=== PATIENT | male | born 1935 | race Caucasian/White ===

== ENCOUNTER 2024-03-04 01:29 | Inpatient (IN) | payer MEDICARE, BC, SELFPAY ==
[2024-03-03 20:48] VITALS: BP 102/67
[2024-03-03 20:49] VITALS: BMI 25.7
[2024-03-03 21:00] VITALS: BP 114/62
[2024-03-03 21:20] LABS: % Basophils 0.8 % (0-2); % Eosinophils 4.2 % (0-6); % Immature Granulocytes 0.2 % (0-0.5); % Lymphocytes 24.7 % (20.5-51.1); % Monocytes 17.5 % (1.7-9.3); % Neutrophils 52.6 % (42.2-75.2); Absolute Eosinophils 0.2 10^3/uL (0-0.7); Absolute Lymphocytes 1.2 10^3/uL (1.2-3.4); Absolute Monocytes 0.9 10^3/uL (0.1-0.6); Absolute Neutrophils 2.7 10^3/uL (1.4-6.5); Hematocrit 30.9 % (39.0-52.0); Hemoglobin 10.8 g/dL (13.0-18.0); Mean Corpuscular Hgb 32.3 pg (27.0-31.0); Mean Corpuscular Volume 92.5 fL (80.0-94.0); Nucleated Red Blood Cells % 0 % (-); Platelet Count 144 10^3/uL (130-400); Red Blood Cell Count 3.34 10^6/uL (4.70-6.10); Red Cell Dist. Width 14.1 % (11.5-14.5)
[2024-03-03 21:36] LABS: ALT (SGPT) 12 U/L (0-50); AST (SGOT) 21 U/L (17-59); Albumin 3.4 g/dl (3.5-5.0); Alkaline Phosphatase 49 U/L (38-126); Blood Urea Nitrogen 20 mg/dl (9-20); Calcium 8.7 mg/dl (8.4-10.2); Carbon Dioxide 20 mmol/L (22-30); Chloride 105 mmol/L (98-107); Estimated Creatinine Clearance 32 ml/min; Glucose 85 mg/dl (70-99); Potassium 3.8 mmol/L (3.5-5.1); Sodium 132 mmol/L (135-145); Total Bilirubin 1.9 mg/dl (0.2-1.3); eGFR 35.98
[2024-03-03] MEDS: NSS 500 IV (21:57)
[2024-03-03] MEDS: TYLENOL 1000 MG PO (21:57)
--- NOTE | 2024-03-03 22:05 | ED.GENMED ---
History of Present Illness
General
Chief Complaint: Failure to Thrive
Source: patient and spouse
Exam Limitations: none
Time Seen by Provider: 03/03/24 21:08
Travel History
Have you had any contact with someone who has COVID-19?: No
Do you have any symptoms of coronavirus? Fever > 100 degrees, chills, cough, shortness of breath, sore throat, loss of taste or smell, muscle aches, or headache?: No
History of Present Illness
History of Present Illness:
This is a 88 year old male that comes in with c/o not eating or drinking. [id number] and states that today he was unresponsive for a few hours. States that he was grunting. States that for the past 3 days he has not been eating as he
states that nothing taste good. States that he has some left lower abd pain and feels very weak. Patent is on Chemo and had his last treatment on Friday. Due for his next treatment on the . Denies any fever, chills, chest pain, SOB, abd pain,
nausea, vomiting, diarrhea, headache, dizziness, urinary burning.
Past History
Past History
ED Past Medical History: Asthma, Cancer (Bladder cancer, Brain and spine), Hypercholesterolemia and Other (DVT right leg)
ED Past Surgical History: Orthopedic (Right Achilles tear repair), Tonsilectomy, Urological and Other (Hernia, Cataracts)
Social History
Tobacco: Non-smoker
Alcohol: None
Personal:
Living: with family
Employment: Retired
Review of Systems
Review of Systems
All Other Systems: ROS reviewed and negative except as documented in HPI and ROS
Constitutional: Reports no symptoms; Denies fever or chills
EENT: Reports no symptoms
Respiratory: Reports no symptoms; Denies cough or trouble breathing
Cardiac: Reports no symptoms; Denies chest pain
ABD/GI: Reports no symptoms; Denies abdominal pain, nausea, vomiting or diarrhea
: Reports no symptoms; Denies dysuria, frequency or urgency
Musculoskeletal: Reports no symptoms
Skin: Reports no symptoms
Neurological: Reports weakness; Denies dizzy or headache
Psychiatric: Reports no symptoms
Phy Exam
General Physical Exam
General Presentation: no apparent distress
General age: appears stated age
General Skin: warm and dry
General Habitus: elderly
General Mental: alert
General Hydration: dry mucous membranes
ENT Exam
ENT Exam: TM's normal, pharynx normal and neck supple
Eye Exam
Eye Exam: EOMI
Cardiovascular Exam
Cardiovascular Exam: regular rate/rhythm and normal peripheral pulses
Pulmonary Exam
Pulmonary Exam: lungs clear, no respiratory distress, no rales, chest non tender, no crackles, no rhonchi, no wheezing and no cough
Gastrointestinal Exam
Gastrointestinal Exam: normal bowel sounds, soft, no organomegaly, no pulsatile mass, non distended and tender (Left lower abd tenderness with palpation)
Musculoskeletal Exam
Musculoskeletal Exam: full ROM and other (Swelling right lower leg >L Nonpitting. )
Skin Exam
Skin Exam: normal color, warm/dry, no rash and no petechia
Psychiatric Exam
Psychiatric Exam: normal mood/affect
Course
Orders/Labs/Results
Orders:
Orders
03/03/24 21:06
Electrocardiogram (*1) Urgent
Reason for Study: Other
Other Reason for Exam: Possible Sepsis
03/03/24 21:07
EKG- Treatment ONCE
03/03/24 21:11
Complete Blood Count/With Diff Urgent
Comprehensive Metabolic Panel Urgent
03/03/24 21:38
Rectal Temp- Treatment ONCE
03/03/24 21:39
CT Abd/pelvis W Iv Cont Urgent
Comment:
Reason For Exam: lEFT SIDED ABD PAIN
0.9% Sodium Chloride 500 ml [Nss] 500 ml IV BOLUS
03/03/24 21:56
Lactic Acid Urgent
Blood Culture Q30M
ROBIN Source: Blood/Venous
Specimen Description:
Blood Culture Q30M
ROBIN Source: Blood/Venous
Specimen Description:
Acetaminophen [Tylenol] 1,000 mg .ROUTE .STK-MED ONE
03/03/24 21:57
Acetaminophen [Tylenol] 1,000 mg PO NOW STA
03/03/24 23:07
CR Chest - 2 Views Urgent
Comment:
Reason For Exam: fever
03/03/24 23:08
Urinalysis Reflex To Culture Urgent
03/03/24 23:14
US Periph Venous LOWER Ext RT Urgent
Comment:
Reason For Exam: Right lower leg swelling
03/03/24 23:15
Blood Culture Q30M
ROBIN Source: Blood/Venous
Specimen Description:
03/03/24 23:19
COVID-19 Antigen Urgent
Source: Nasal Swab
Influenza A+B Rapid Molecular Urgent
ROBIN Source: Nasal Swab
Specimen Description:
03/03/24 23:21
Heparin Pf [Heparin Lock Flush] 500 unit .ROUTE .STK-MED ONE
03/03/24 23:45
Blood Culture Q30M
ROBIN Source: Blood/Venous
Specimen Description:
03/04/24 00:21
Admit/Transfer Patient As Directed
Co-Sign Provider:
Level of Care: Inpatient admission
Assign to:: Telemetry
Physician / Group: Lukas
Diagnosis: RLE DVT, Failure to Thrive
Reason for Telemetry: Arrhythmia
Date to Stop Telemetry: 03/07/24
Time to Stop Telemetry: 11:00
Reason for Hospitalization: RLE DVT, Failure to Thrive
Expected length of stay greater than two midnights?: Yes
ELOS- Estimated Length of Stay in days: 3
I certify the patient meets the requirements for IP care: Yes
03/04/24 00:26
Code Status As Directed
Resuscitation Status: Full Code
03/04/24 00:31
Heparin 6,900 units IV NOW STA
Pharmacy Request to Place See Dose Instructions PO NOW STA
Discontinue all Active Warfarin orders?: Yes
03/07/24 11:00
DC Protocol for Telemetry ONCE
Abnormal Lab Results
03/03/24
21:11
RBC 3.34 L 10^6/uL
(4.70-6.10)
Hgb 10.8 L g/dL
(13.0-18.0)
Hct 30.9 L %
(39.0-52.0)
MCH 32.3 H pg
(27.0-31.0)
Absolute Monos (auto) 0.9 H 10^3/uL
(0.1-0.6)
Monocytes % 17.5 H %
(1.7-9.3)
Sodium 132 L mmol/L
(135-145)
Carbon Dioxide 20 L mmol/L
(22-30)
Creatinine 1.8 H mg/dL
(0.7-1.3)
Total Bilirubin 1.9 H mg/dl
(0.2-1.3)
Total Protein 6.0 L g/dl
(6.3-8.2)
Albumin 3.4 L g/dl
(3.5-5.0)
03/03/24 21:11
03/03/24 21:11
H/H low Sodium slightly low, Carbon dioxide slightly low. Total indy elevation. Total protein slightly low. COVID and Influenza Negative, Lactic acid normal at 1.3
Vital Signs
Initial and Last Documented VS:
Initial Vital Signs
Temp Pulse Resp Pulse Ox
99 F 84 18 99
03/03/24 20:41 03/03/24 20:41 03/03/24 20:41 03/03/24 20:41
Last Documented Vital Signs
Temp Pulse Resp BP Pulse Ox
100.9 F H 85 22 114/62 100
03/03/24 23:36 03/03/24 22:00 03/03/24 22:00 03/03/24 21:00 03/03/24 22:00
MDM/Problems Addressed
Differential Diagnosis Includes:
Fever, PNA, UTI,
MDM/Problems Addressed:
This is a 88 year old male that comes in with c/o not eating or drinking. states that this started about 3 days ago. Today patent was unresponsive for a few hours and was grunting. Patient denies any complaints.
Will get labs, CT abd as patient has left sided abd tenderness on exam. Patient was very weak and had a hard time sitting up. Was also found to have a fever. Will give Tylenol.
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 Moderate to severe atrophy of the right kidney, asymmetric compared to the left, stable from previous examination. Colonic diverticula
with no CT evidence for diverticulitis. Heterogeneous sclerosis of the L4 vertebral body, which is considered highly suspicious for bony metastatic disease. Cholelithiasis. No findings that would be considered highly suggestive of acute
cholecystitis.
Ultrasound positive for DVT.
Will admit patient as he is very weak with a fever, CT and Ultrasound positive or DVT. Hospitalist notfied.
Chronic conditions affecting care: Cancer
Acute Exacerbation and/or Progression of Chronic Illness: Cancer
*Radiology
Radiology exam reviewed: preliminary read by ED provider (Chest- Negative for active disease), radiology read reviewed (CT-Moderate to severe calcification seen involving the aortic valve. Please correlate with an clinical findings that would
suggest significant aortic stenosis. Coronary artery calcification. Please correlate with symptoms of and risk factors for coronary artery disease, with further workup as ), all reviewed NAD by ED Provider (CT cont- clinically appropriate.
Peripheral linear increased densites within the visualized lower lungs, suggestive of mild interstitial fibrosis. It is possible that there is also a component of linear atelectasis. CT findings highly suggestive of deep venous thrombosis of the
right common femoral ) and other (CT con vein, probable also involving the distal right external iliac vein. Further evaluation [facility] right lower extremity venous ultrasound is advised. Moderate to severe diffuse atherosclerotic disease of the abd and
pelvis vasculature. There is dilation of the abd aorta, measurements given above. . )
*Pulse Oximetry
Patient hypoxic: no
*EKG
Interpreted by ED Provider?: Yes
Heart Rate: 85
Rate: normal
Rhythm: sinus
[place]: normal axis
Interval: normal interval
QRS Pattern: normal QRS
Ischemia: non-specific ST changes (V6)
*Oncology Pharmacist Interpretation
Rate: normal
Heart Rate: 86
Rhythm: sinus
*Critical Care Note
Total Time (30-74mins, 75-104mins- exclusive of procedures): Not Applicable
ED Attending Note
-
Portions of this chart may have been created with voice recognition software.� Occasional wrong word or��sound alike� substitutions may have occurred due to the inherent limitations of voice recognition software.
Discharge Plan
Departure
Patient Disposition: Admit
Date of Disposition: 03/04/24
Time of Disposition: 00:39
Admit to: Telemetry
Presentation/result/management discussed w/ accepting MD/DO: Hospitalist
Patient with high blood pressure during this ER visit?: No
Condition: Good
Covid-19: Negative COVID-19
Discharge Problem:
Fever, Weakness, Right leg DVT
Prescriptions:
No Action
acetaminophen 500 mg Tablet
500 mg PO Q6H PRN (Reason: mild pain/fever)
Referrals:
Jerrod Ashton DO [Family Provider] -
Interventions
Interventions:
*Risk Screen - Suicide Last Done: 03/03/24 20:41
*General Assessment Last Done: 03/03/24 20:41
*Neglect/Abuse Screening Last Done: 03/03/24 20:41
Discharge Date and Time
Print Language: BANGLADESHI
[2024-03-03 22:17] LABS: Lactic Acid 1.3 mmol/L (0.7-2.0)
[2024-03-03 23:45] LABS: COVID-19 Antigen Negative (Negative)
[2024-03-04] VITALS (8 sets, daily range): BP systolic 103–143; BP diastolic 51–84; BMI 26.0; BMI 25.8
--- NOTE | 2024-03-04 00:33 | HPS.HSE ---
Family Physician
-
Family Physician: Jerrod Ashton
Chief Complaint
-
Failure to Thrive
History of Present Illness
Patient is an 88y M with PMH significant for metastatic bladder cancer on systemic chemotherapy who presents to ED for evaluation of anorexia / failure to thrive. History obtained from the patient. Patient states that his brought him in
for evaluation as she was concerned - he has not eaten / drank in the past 3 days. Patient denies any nausea, abdominal pain, post-prandial symptoms or other such issues. States that he simply does not want to eat.
He is on chemotherapy for bladder cancer at [facility] under the direction of Dr. Ochoa. He has treatments weekly and his last treatment was last Friday.
Patient denies any cough, subjective fevers / chills, urinary complaints, N/V/D, etc.
He does note swelling the RLE which she states has been there for 'a while'. He reports a prior history DVT and was on Xarelto for a time - though this was apparently quite some time ago.
He states that he takes no medications at present.
Medical History
Past Medical History
Past Medical History: Reports Other
Additional Past Medical History:
Metastatic Bladder Cancer
History of DVT
CKD IV
Past Surgical History: Reports Other
Additional Past Surgical History:
TURBT
Achilles Tendon Repair
Hernia Repair
Social History
Tobacco: Non-smoker
Alcohol: Occasional (Rarely.)
Drug: None
Family History
Family History: Not pertinent
Allergies / Home Medications
Allergies reflects when Allergies were last updated in [facility].
Home Medications with original date entered in [facility]
Allergy/Medication List:
Allergies
Allergy/AdvReac Type Severity Reaction Status Date / Time
pollen extracts Allergy 'mucous Verified 03/03/24 20:48
thickens'
Home Medications
acetaminophen 500 mg tablet 500 mg PO Q6H PRN mild pain/fever 03/03/24
Weekly systemic chemo at [facility] - ? regimen.
Review of Systems
-
History Source: Patient
A 12 point ROS was completed and negative except as noted: Yes
Constitutional: Reports Fatigue; Denies Fever or Chills
EENT: Denies Sore Throat
Respiratory: Denies Cough or Trouble Breathing
Cardiac: Denies Chest Pain or Palpitations
Abdomen/GI: Reports Anorexia; Denies Abdominal Pain, Nausea, Vomiting or Diarrhea
: Denies Dysuria, Frequency or Flank Pain
Musculoskeletal: Reports Edema; Denies Joint Pain
Neurological: Denies Dizzy or Headache
Psych: Reports Depression; Denies Anxiety
Physical Exam
Vital Signs
Vital Signs
Temp Pulse Resp BP Pulse Ox
100.9 F H 85 22 114/62 100
03/03/24 23:36 03/03/24 22:00 03/03/24 22:00 03/03/24 21:00 03/03/24 22:00
Physical Exam
General: Other (88y M with flat / depressed affect in no acute distress.)
HEENT: PERRLA and Other (Dry MM.)
Respiratory: Clear; No Wheezes, Rales or Rhonchi
Cardiac: S1/S2, Regular Rhythm and Murmur (II/ JENNIFER)
GI: Soft, Non Tender, Non Distended and Normal Bowel Sounds
Musculoskeletal: No Clubbing, No Cyanosis and Other (2+ pitting edema of the RLE to the thigh. No tenderness.)
Neuro: Other (Awake. Occasionally has some word-finding issues or seems momentarily disoriented / confused. No focal neurologic findings.)
Psych: Depressed
Laboratory Results
-
03/03/24 21:11
03/03/24 21:11
Laboratory Results
Lactic Acid Cancelled 03/03/24 23:07
Total Bilirubin 1.9 mg/dl (0.2-1.3) H 03/03/24 21:11
AST 21 U/L (17-59) 03/03/24 21:11
ALT 12 U/L (0-50) 03/03/24 21:11
Alkaline Phosphatase 49 U/L (38-126) 03/03/24 21:11
Impression/Plan
-
A/P: Patient is an 88y M with PMH significant for metastatic bladder cancer who presents to ED for evaluation of refusal to eat / drink. He is noted to have significant RLE DVT.
Extensive RLE DVT
- Admit for further evaluation and treatment.
- Patient reports prior history of DVT - previously on Xarelto.
- Start IV heparin for now.
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
- No significant pain at present. Follow for improvement in edema, etc.
Failure to Thrive / Anorexia
- Unclear etiology, but this seems a voluntary condition.
- Patient denies any bothersome symptoms and admits that he simply does not wish to eat / drink.
- That said, he states that he would like to be full code in the event of cardiac arrest, which seems incongruous.
- IVF support overnight.
- Will ask Psychiatry to evaluate.
Fever
- Temp in the ED 100.9.
- No focal complaints or exam findings to suggest active infection.
- Fever may be secondary to extensive DVT as noted above, underlying malignancy, etc.
- Will observe off of abx for now and monitor fro any positive culture data, focal symptoms, etc.
CKD IV
Mild Hyponatremia
- Stable. SCr seems at / near known baseline.
- Follow for changes with IVFs, etc.
Metastatic Bladder Cancer
- Currently on systemic chemo and followed at [facility].
- Patient denies any other current medications.
Normocytic Anemia
- Hgb decreased from prior baseline - but those values are from 2 years ago.
- Heme test stools.
- Monitor for any changes - especially with therapeutic anticoagulation.
Code Status: Full
[2024-03-04 01:17] LABS: APTT 41.1 Sec (23.4-35.0)
[2024-03-04] MEDS: LR 1000 IV ×3 (01:52→23:55)
[2024-03-04] MEDS: HEPARIN 6900 UNITS IV ×2 (01:53→20:01)
[2024-03-04] MEDS: HEPARIN 25000 UNITS/250 ML IV (01:54)
[2024-03-04] MEDS: PHATP 1 UNIT PO (02:06)
[2024-03-04 04:26] LABS: TSH Reflex To Free T4 2.76 uIU/ml (0.47-4.68)
[2024-03-04 06:09] LABS: Blood Urea Nitrogen 20 mg/dl (9-20); Calcium 8.8 mg/dl (8.4-10.2); Carbon Dioxide 19 mmol/L (22-30); Chloride 108 mmol/L (98-107); Estimated Creatinine Clearance 29 ml/min; Glucose 84 mg/dl (70-99); Potassium 4.1 mmol/L (3.5-5.1); Sodium 135 mmol/L (135-145); eGFR 33.72
[2024-03-04 07:20] LABS: APTT 177.4 Sec (23.4-35.0)
--- NOTE | 2024-03-04 07:33 | W.PN.UPDATE ---
Update Note
Progress Note Update
Seen and examined with [facility]. Full consultation to follow. Briefly 88-year-old with metastatic bladder cancer. History of DVT (patient notes bilateral lower extremities) prior on Xarelto. Was stopped after he completed treatment from what he notes.
Note patient reports that that DVT followed his diagnosis of cancer. Now presents with somewhat failure to thrive type symptoms, poor appetite, not eating. Patient denies any pain in his right leg or either leg. No pain with ambulation. Notes
possible mild swelling right lower extremity. Otherwise he is without significant complaints.
Denies any family history of aortic aneurysms.
Denies any tobacco use.
On exam/she is awake and alert. Head is normocephalic and atraumatic. Eyes are anicteric. Neck is soft without jugular venous distention. Abdomen is soft, nondistended, nontender. Lower extremity with mild swelling right thigh and calf but they
are soft. No phlegmasia in the leg or foot. Compartments are all soft. No tenderness. Easily palpable 2+ femoral, popliteal, left DP and right PT pulses. Feet are warm with no rubor, no ulcerations.
Imaging reviewed including CT scan abdomen/pelvis and lower extremity duplex imaging.
Plan/ 1) extensive right lower extremity DVT with occlusive thrombus in right common femoral vein. On CT no evidence of iliac vein thrombus. Regardless with his metastatic cancer history and his advanced age, he is not a candidate for any
intervention. In addition, given not involvement of the iliofemoral segment and relatively mild swelling and no significant symptoms and potential chronicity (history of prior clot), again no indication for intervention. Recommend anticoagulation
and compression. He can follow-up with his dye box operator/oncologist regarding duration of therapy, but possibly lifelong.
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 Appears to have small ectasia or aneurysm of the abdominal aorta and the juxtarenal segment with posterior mural thrombus. Similarly in the left common iliac with some mural
thrombus. Neither of these warrant intervention at this time. Continued surveillance is sufficient. Follow-up in the office with me in 1 year with surveillance ultrasound imaging.
--- NOTE | 2024-03-04 07:41 | CON.VAS ---
Consultation
Consultation Request
Date/Time Consultation Performed: 03/04/2024
Requesting Provider: Hospitalist
Performing Provider: Marlyn Aquino, TAMARA-C for True Lucas MD
Reason for Consultation: Right lower extremity DVT
Medical History
-
Chief Complaint: Failure to thrive
History of Present Illness:
This is a 88-year-old with significant past medical history of metastatic bladder cancer (actively receiving chemotherapy), asthma, hypercholesterolemia, and DVT, who reported to [place] ED on 03/03/24 at the encouragement of for poor p.o.
intake. Vascular surgery was consulted for evidence of right lower extremity DVT into iliac vein and abdominal aortic ectasia with left iliac artery ectasia/small aneurysm. Patient does endorse history of DVT (patient notes bilateral lower
extremities) prior on Xarelto, he reports discontinuation of blood thinner as he had completed his treatment regimen at that time. Note patient reports that that DVT followed his diagnosis of cancer. Now presents with somewhat failure to thrive
type symptoms, poor appetite, not eating. Patient denies any pain in his right leg or either leg. No pain with ambulation. Notes possible mild swelling right lower extremity. Otherwise he is without significant complaints. Denies any family
history of aortic aneurysms. Denies any tobacco use.
Past Medical History
Past Medical History: Asthma, Hypercholesterolemia and Other (DVT, CKD IV, bladder cancer with metastatic to spine and brain)
Past Surgical History: Tonsilectomy and Other (TURBT, Achilles Tendon Repair, Hernia Repair)
Social History
Tobacco: Non-Smoker
Alcohol: None
Personal:
Living: With Family
Allergies / Home Medications
Allergy/AdvReac Type Severity Reaction Status Date / Time
pollen extracts Allergy 'mucous Verified 03/03/24 20:48
thickens'
�Medication �Instructions �Recorded �Confirmed �Type
acetaminophen 500 mg tablet 500 mg PO Q6H PRN mild pain/fever 03/03/24 03/03/24 History
Review of Systems
-
History Source: Patient
Constitutional: Reports Fatigue
EENT: Reports No Symptoms
Respiratory: Reports No Symptoms
Cardiac: Reports No Symptoms
Vascular: Denies Leg Pain / Claudication
Abdomen/GI: Reports Anorexia
: Reports No Symptoms
Musculoskeletal: Reports Joint Pain and Edema
Skin: Reports No Symptoms
Neurological: Reports No Symptoms
Physical Exam
Vital Signs
Temp Pulse Resp BP Pulse Ox
97.9 F 80 18 128/78 92
03/04/24 07:20 03/04/24 07:20 03/04/24 07:20 03/04/24 07:20 03/04/24 07:20
Lab Results
03/04/24 01:31
03/04/24 03:54
Physical Exam
General: No Apparent Distress and Comfortable
HEENT: Normocephalic, Anicteric and Atraumatic
Respiratory: Non Labored Respirations
Cardiac: Negative JVD
GI: Soft, Non Tender and Non Distended
Musculoskeletal: Edema (Right lower extremity with trace to +1 edema but right thigh and calf remain soft)
Skin: Warm
Neuro: AO x 3
Pulses: Bilateral Femoral: +2, Bilateral Popliteal: +2, Left Dorsalis Pedis: +1 and Right Posterior Tibial: +1
Assessment / Plan
-
Assessment: 88-year-old male admitted for failure to thrive with significant past medical history of bladder cancer with metastasis to brain and spine, CT evidence of extensive right lower extremity DVT with occlusive thrombus in right common
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
Plan:
Regarding extensive right lower extremity DVT with occlusive thrombus in right common femoral vein, he is not a candidate for surgical intervention due to metastatic cancer history and advanced age. In addition, given not involvement of the
iliofemoral segment and relatively mild swelling and no significant symptoms and potential chronicity (history of prior clot), again no indication for intervention. Recommend anticoagulation and compression. He can follow-up with his
extension supervisor/oncologist regarding duration of therapy, but possibly lifelong.
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 Appears to have small ectasia or aneurysm of the abdominal aorta and the juxtarenal segment with posterior mural thrombus. Similarly in the left common iliac with some mural
thrombus. Neither of these warrant intervention at this time. Continued surveillance is sufficient. Follow-up in the office with me in 1 year with surveillance ultrasound imaging.
Data Reviewed
-
CT Scan: Report Reviewed by me, Discussed with Physician and Discussed with Patient
Ultrasound: Discussed with Physician
Labs: Labs Reviewed by me, Discussed with Physician and Discussed with Patient
[2024-03-04] MEDS: NSS (PRESERVATIVE FREE) 10 ML IV (08:18)
[2024-03-04] MEDS: PROTONIX IV 40 MG IV (08:18)
--- NOTE | 2024-03-04 09:12 | CON.ONC ---
Impression
Impression
Extensive right lower extremity DVT extending into the iliac
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
Currently on Padcev (EV) at dose modified schedule
Fatigue
Failure to thrive
Plan
Plan
Not a candidate for lytic therapy previous INDUCTOR TESTER metastases
Would initiate DOAC Eliquis preference
Would consider repeat imaging for progression of INDUCTOR TESTER metastases prior to committing to long-term anticoagulation
Discussed this case with Lissy Ochoa at [facility]
Patient History
History of Present Illness
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 He was initially treated with systemic GC followed by [facility] as he was felt not to be a surgical
candidate. Pembrolizumab was continued until January 2021 discontinued because of progressive renal failure and question of nephritis. In September 2022 he developed a bladder mass with retroperitoneal and adenopathy biopsy-proven positive metastatic
disease. Pembrolizumab was reinstated but unfortunately he had rapid progression. He then received 3 cycles of enfortumab-vendotin (EV) with a CR response lasting 11 months. He progressed with L4 and INDUCTOR TESTER metastases. Right-sided temporal lesion
was resected left-sided lesion was treated with SBRT. Retroperitoneal progression in January led to initiation of EV at dose reduction 0.75 mg/kg day 1 + 15. He noted progressive fatigue, anorexia and right lower extremity swelling. He has been
admitted to the hospital for hydration and anticoagulation recommendations for extensive right lower extremity DVT. He previously was treated for DVT in the past with Xarelto which was discontinued after presumed completion of therapy.
Past-Medical/Surgical History
Past Medical History
Bladder carcinoma active disease in the retroperitoneum
INDUCTOR TESTER metastases postresection in SBRT
L4 metastasis tx
History of DVT
CKD IV
Past Surgical History
Craniotomy with temporal resection of metastases
TURBT
Achilles Tendon Repair
Hernia Repair
Social History
Tobacco: Non-smoker
Alcohol: Occasional (Rarely.)
Drug: None
Family History
Family History: Not pertinent
Patient Medication
�Medication �Instructions �Recorded �Confirmed �Last Taken �Type
acetaminophen 500 mg tablet 500 mg PO Q6H PRN mild pain/fever 03/03/24 03/03/24 Unknown History
Active Medications
Generic Name Dose Route Start Last Admin
Trade Name Freq PRN Reason Stop Dose Admin
Acetaminophen 650 mg 03/04/24 01:31
Acetaminophen 325 Mg Tablet PO 04/01/24 01:30
Q4HPRN PRN
Mild Pain / Temp > 101
Heparin Sodium 6,900 units 03/04/24 01:36
Heparin 80 Units/Kg Rebolus-Do Not Discard IV 04/01/24 01:35
PRN PRN
PTT < OR = 64 seconds
Heparin Sodium 3,400 units 03/04/24 01:36
Heparin 40 Units/Kg Rebolus-Do Not Discard IV 04/01/24 01:35
PRN PRN
PTT = 64.1 to 72.9 seconds
Heparin Sodium 25,000 units in 250 mls @ 0 mls/hr 03/04/24 01:31 03/04/24 01:54
Heparin 07097 Units/250 Ml IV 250 mls
PER PROTOCOL MARYBETH Administration
Protocol
Per Protocol
Lactated Ringer's 1,000 mls @ 100 mls/hr 03/04/24 01:31 03/04/24 01:52
Lr IV 1,000 mls
.Q10H MARYBETH Administration
Pantoprazole Sodium 40 mg 03/04/24 08:00 03/04/24 08:18
Pantoprazole Sodium 40 Mg/10 Ml Vial IV 04/01/24 07:59 40 mg
DAILY MARYBETH Administration
Sodium Chloride 0 flush 03/04/24 02:00
Sodium Chloride 0.9% (Flush) Syringe IV 04/01/24 01:59
PER PROTOCOL MARYBETH
Sodium Chloride 10 ml 03/04/24 08:00 03/04/24 08:18
Sodium Chloride 0.9% (Preservative Free) 10 Ml Vial IV 04/01/24 07:59 10 ml
DAILY MARYBETH Administration
Review of Systems
-
12 point review of systems fails to elicit additional complaints other than those reviewed in the HPI
Physical Exam
-
Physical Exam
General: Alert appropriate
HEENT: PERRLA and Other (Dry MM.)
Respiratory: Clear; No Wheezes, Rales or Rhonchi
Cardiac: S1/S2, Regular Rhythm and Murmur (II/ JENNIFER)
GI: Soft, Non Tender, Non Distended and Normal Bowel Sounds
Musculoskeletal: No Clubbing, No Cyanosis and Other (2+ pitting edema of the RLE to the thigh. No tenderness.)
Neuro: Nonfocal
Psych: Depressed- previous right temporal/frontal lobe resection
Labs
Lab Results
WBC Cancelled 03/04/24 01:31
RBC Cancelled 03/04/24 01:31
Hgb Cancelled 03/04/24 01:31
Hct Cancelled 03/04/24 01:31
MCV Cancelled 03/04/24 01:31
MCH Cancelled 03/04/24 01:31
MCHC Cancelled 03/04/24 01:31
RDW Cancelled 03/04/24 01:31
Plt Count Cancelled 03/04/24 01:31
MPV Cancelled 03/04/24 01:31
Abs Immat Gran (auto) 0.0 10^3/uL (0-0.05) 03/03/24 21:11
Absolute Neuts (auto) 2.7 10^3/uL (1.4-6.5) 03/03/24 21:11
Absolute Lymphs (auto) 1.2 10^3/uL (1.2-3.4) 03/03/24 21:11
Absolute Monos (auto) 0.9 10^3/uL (0.1-0.6) H 03/03/24 21:11
Absolute Eos (auto) 0.2 10^3/uL (0-0.7) 03/03/24 21:11
Absolute Basos (auto) 0.0 10^3/uL (0-0.2) 03/03/24 21:11
Immature Gran % 0.2 % (0-0.5) 03/03/24 21:11
Neutrophils % 52.6 % (42.2-75.2) 03/03/24 21:11
Lymphocytes % 24.7 % (20.5-51.1) 03/03/24 21:11
Monocytes % 17.5 % (1.7-9.3) H 03/03/24 21:11
Eosinophils % 4.2 % (0-6) 03/03/24 21:11
Basophils % 0.8 % (0-2) 03/03/24 21:11
Creatinine 1.9 mg/dL (0.7-1.3) H 03/04/24 03:54
Vital Signs
Vital Signs
Temp Pulse Resp BP Pulse Ox
97.9 F 80 18 128/78 92
03/04/24 07:20 03/04/24 07:20 03/04/24 07:20 03/04/24 07:20 03/04/24 07:20
--- NOTE | 2024-03-04 10:04 | PTCARENOTE ---
pt receiving IV LR @100ml/hr through his R SQ port. pt is also on a heparin gtt and this nurse reported a critical result of a PTT of 177.4 to the MD and vascular team this morning. gtt was held for an hour and then the rate of 1500/15ml/hr was
decreased by 300 per protocol. gtt cosigned and decreased to 1200/12ml/hr. see proper documentation in the chart. pt had a loose incontinent stool this AM in his brief and it was heme (-). pt has neurovascular checks that were changed from q2 to
q4hr. pt is to go for a head CT this AM and is a one assist to the chair.
--- NOTE | 2024-03-04 14:44 | CON.MD ---
Consultation - Medical
-
patient seen chart reviewed. daughter in law and in room. spoke w nursing and with dr shepherd. the patient is an 88 year old male dx recently w metastatic bladder cancer and being rx at [facility]. he had chemo last friday. he was brought to
hospital bc lethargic not eating or drinking and often unresponsive.there was also some c/o abdominal pain. there was some ? as to whether this represented depression. nursing reports patient is barely communicative. when i was there with family
he was sleeping for the most part and would grunt intermittently but did not respond when asked for example whether he was in pain. this patient has no hx of depression or anxiety and has never been treated for psychiatric illness. further workup
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 surgical treatment of the thrombus not a possibilty given medical condition. dr shephred is in the process of further workup
to delineate extent of metastases to spine brain lymph nodes etc. patient is described as having been very with it prior to dx of bladder cancer and recent events.
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
past psych hx none
fh non contributory
social history limited in scope given medical situation. patient is at bedside and very supportive five children
mse patient sleeping and while he would awaken every now and then and grunt, he did not engage in any conversation
impression and recommendations: It is my impression that mr wilkinson is very medically ill and that the symptoms for which he came to including not eating or drinking, lethargy are secondary to underlying very serious and debiliating medical
illness. dr shepherd and i discussed whether antidepressants might help but do not have any conviction truly that this would be the case. a decision made not to rx with antidepressants and to continue w workup. dr shepherd will call giron daniel to
discuss prognosis/future rx . it is my impression and i did discuss this with the family that hospice might be considered depending on workup and discussion with [facility] onco. will look in on him tomorrow to reassess.
--- NOTE | 2024-03-04 16:17 | W.PN.HOSP.TC ---
Today's Communication/Plan
-
IV heparin
MRI of the brain
Monitor neurologic status.
Ongoing goals of care discussion.
Assessment / Plan
Assessment / Plan
A/P: Patient is an 88y M with PMH significant for metastatic bladder cancer who presents to ED for evaluation of refusal to eat / drink. He is noted to have significant RLE DVT.
Extensive RLE DVT
- Admit for further evaluation and treatment.
- History history of DVT and PE treated with Xarelto prior to diagnosis of cancer. At that time patient completed 3 to 4 months of anticoagulation.
- Initiated on IV heparin for now.
- Vascular Surgery eval appreciated with no clinical indication for surgical intervention
- Plan is to transition to oral anticoagulation after reassessing brain given extensive cerebral metastatic disease.
Failure to Thrive / Anorexia
- Likely multifactorial and secondary to extensive DIRECTOR SANITATION BUREAU metastatic disease, likely component of dementia, ongoing immunotherapy.
- Patient denies any bothersome symptoms and admits that he simply does not wish to eat / drink.
- That said, he states that he would like to be full code in the event of cardiac arrest, which seems incongruous.
- IVF support overnight.
- Discussed with psychiatry. Less likely depressive.
Fever
- Temp in the ED 100.9.
- No focal complaints or exam findings to suggest active infection.
- Fever may be secondary to extensive DVT as noted above, underlying malignancy, etc.
- Will observe off of abx for now and monitor fro any positive culture data, focal symptoms, etc.
CKD IV
Mild Hyponatremia
- Stable. SCr seems at / near known baseline.
- Follow for changes with IVFs, etc.
Metastatic Bladder Cancer.
Extensive metastatic disease to DIRECTOR SANITATION BUREAU with craniotomy at [facility].
CT head without contrast: Significant decrease in size/volume of bilateral intracranial mass lesions suspicious for metastatic disease seen on prior CT with decreased accompanying edema associated with right-sided parietal lesion. Unfortunately,
without intravenous contrast, determination of any residual mass is markedly limited.
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
Given concern for collection possible subdural will obtain additional imaging with MRI of the brain.
- Currently on systemic chemo and followed at [facility].
- Patient denies any other current medications.
Normocytic Anemia
- Hgb decreased from prior baseline - but those values are from 2 years ago.
- Heme test stools.
- Monitor for any changes - especially with therapeutic anticoagulation.
Code Status: Full
Anticipated Discharge: > 48 hours
Subjective/Interval History
-
Date of Service: March 04, 2024
Objective Data
-
Labs:
Laboratory Results
03/04/24 03/04/24 03/04/24
03:54 06:07 12:04
APTT 177.4 H* 125.0 H
Sodium 135
Potassium 4.1
Chloride 108 H
Carbon Dioxide 19 L
BUN 20
Creatinine 1.9 H
Glucose 84
Calcium 8.8
03/04/24
18:00
APTT Pending
Sodium
Potassium
Chloride
Carbon Dioxide
BUN
Creatinine
Glucose
Calcium
Vital Signs:
Vital Signs
Temp Pulse Resp BP Pulse Ox
99.1 F 98 18 128/74 96
03/04/24 15:20 03/04/24 15:20 03/04/24 15:20 03/04/24 15:20 03/04/24 15:20
I&O
03/03/24 03/04/24 03/05/24
06:59 06:59 06:59
Intake Total 460 / 460
Output Total 150 / 150
Balance 310 / 310
Physical Exam
-
General: Well Developed and No Apparent Distress
HEENT: Normocephalic, Atraumatic and Moist Mucous Membranes
Respiratory: Clear to Auscultation
Cardiac: Regular Rhythm and S1/S2; Negative Murmur, Rub or Gallop
GI: Soft, Nontender, Nondistended and Normal Bowel Sounds; Negative Organomegaly
Rectal: Deferred by Provider
Musculoskeletal: No Clubbing, No Cyanosis and No Edema
Skin: Negative Rash
Neuro: Nonfocal/Grossly Intact
--- NOTE | 2024-03-04 16:34 | CM ---
Initial assessment completed with D-I-L. Son, Jose, is POA. Patient lives with his in a 2 story plus basement home with 1st floor set-up for living, 2 steps to enter, has a SPC, RW, SC, grab bars in garage to enter home, no in-home services,
HOT BALLER was independent, has not driven for a few weeks since became ill, no psychiatric history. Pharmacy is [facility] in [place] and PCP is Dr. Jerrod Ashton. Discharge Plan of Care: TBD based on therapy recommendations.
[2024-03-04 18:55] LABS: APTT 58.4 Sec (23.4-35.0)
[2024-03-04] MEDS: TYLENOL 650 MG PO (21:30)
[2024-03-05] VITALS (8 sets, daily range): BP systolic 105–170; BP diastolic 58–74; PULSE 87; O2SAT 95; BMI 26.3
[2024-03-05] MEDS: HEPARIN 25000 UNITS/250 ML IV (00:43)
[2024-03-05 03:07] LABS: APTT 158.6 Sec (23.4-35.0)
[2024-03-05 04:39] LABS: % Basophils 0.7 % (0-2); % Eosinophils 4.6 % (0-6); % Immature Granulocytes 0.5 % (0-0.5); % Lymphocytes 27.1 % (20.5-51.1); % Monocytes 18.4 % (1.7-9.3); % Neutrophils 48.7 % (42.2-75.2); Absolute Eosinophils 0.2 10^3/uL (0-0.7); Absolute Lymphocytes 1.1 10^3/uL (1.2-3.4); Absolute Monocytes 0.8 10^3/uL (0.1-0.6); Hematocrit 28.7 % (39.0-52.0); Hemoglobin 9.6 g/dL (13.0-18.0); Mean Corp Hgb Conc. 33.4 g/dL (33.0-37.0); Mean Corpuscular Hgb 32.1 pg (27.0-31.0); Mean Platelet Volume 10.3 fL (7.4-10.4); Nucleated Red Blood Cells % 0 % (-); Platelet Count 145 10^3/uL (130-400); Red Blood Cell Count 2.99 10^6/uL (4.70-6.10); Red Cell Dist. Width 13.7 % (11.5-14.5); White Blood Cell Count 4.1 10^3/uL (4.8-10.8)
[2024-03-05 04:51] LABS: Blood Urea Nitrogen 17 mg/dl (9-20); Calcium 8.4 mg/dl (8.4-10.2); Carbon Dioxide 20 mmol/L (22-30); Chloride 107 mmol/L (98-107); Estimated Creatinine Clearance 31 ml/min; Glucose 94 mg/dl (70-99); Potassium 3.9 mmol/L (3.5-5.1); Sodium 133 mmol/L (135-145); eGFR 35.98
[2024-03-05] MEDS: PROTONIX IV 40 MG IV (08:18)
[2024-03-05] MEDS: NSS (PRESERVATIVE FREE) 10 ML IV (08:18)
--- NOTE | 2024-03-05 09:05 | W.PN.ONC ---
Addendum entered and electronically signed by Castillo Andres MD 03/05/24 15:43:
Agree with plans as outlined by nurse practitioner. Heparin stopped, Eliquis started. Follow-up at [facility].
Original Note:
Today's Communication / Plan
-
03/05 WBC 4.1, Hgb 9.6, Hct 28.7, PLT 145, ANC 2.0
Patient is not a candidate for lytic therapy previous ALUMINUM BOAT INSPECTOR metastases per Dr. De Santiago
Would initiate DOAC Eliquis preference
Repeat imaging for progression of ALUMINUM BOAT INSPECTOR metastases prior to committing to long-term anticoagulation
Brain MRI resulted with evidence of new metastatic lesions
Heparin gtt
Continue to monitor neuro status closely
Supportive care
Falls precautions
Goals of care ongoing
Impression
Impression
Extensive right lower extremity DVT extending into the iliac
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
Currently on Padcev (EV) at dose modified schedule
Failure to thrive
Change in mental status
Restlessness
Fatigue
Subjective/Objective
Subjective/Objective
Patient is confused, restless in bed. Unable to participate in evaluation.
Vital Signs:
Vital Signs
Temp Pulse Resp BP Pulse Ox
97.9 F 79 16 109/66 100
03/05/24 07:15 03/05/24 07:15 03/05/24 07:15 03/05/24 07:15 03/05/24 07:15
03/05/24 Brain MRI: When compared to the prior brain MRI 4.5 years ago there are new metastatic lesions which have been noted on previous head CT 11/07/2023 and earlier today.These are located in the right temporal parietal region, left caudate and 2
tiny foci of enhancement in the left parietal lobe as outlined above. None of the lesions have significant vasogenic edema. There is no midline shift or downward herniation.There is a prominent left subdural fluid collection most consistent with a
subdural hygroma
Lab Results:
Laboratory Data
WBC 4.1 10^3/uL (4.8-10.8) L 03/05/24 04:05
Hgb 9.6 g/dL (13.0-18.0) L 03/05/24 04:05
Plt Count 145 10^3/uL (130-400) 03/05/24 04:05
APTT 158.6 Sec (23.4-35.0) H* 03/05/24 02:17
eGFR 35.98 03/05/24 04:05
[2024-03-05] MEDS: LR IV (10:09)
[2024-03-05] MEDS: LR 1000 IV ×2 (10:21→19:29)
--- NOTE | 2024-03-05 10:33 | PN.CDI ---
CDI
- -
CDI:
Physician Documentation Request
Admit Date: 03/04/24 01:29
Dear Doctor Caroline,
Clinical Indicators:
Patient admitted with Failure to Thrive/Anorexia; PMH includes metastatic bladder cancer.
03/04 note/assessment:- '223 lb 1.725 oz 11/07 reflective of significant 17.4% weight loss x 4 months. Pt
endorses significant unintentional weight loss.
- 'Per ASPEN/AND guidelines, pt meets for severe malnutrition in the context of
chronic illness as evidenced by <50% intake est needs x > 1 month, 17% weight loss
x <6 months.'
Based on the information, which of the following most accurately represents the patient's nutritional status?
Severe Protein Calorie Malnutrition
Moderate Protein Calorie Malnutrition
Mild Protein Calorie Malnutrition
Other (please specify)
Ninety Six Criteria ([facility] Hospitalist 2017)
2 or more criteria must be present for either
non severe or severe malnutrition
Note that the criteria differs related to the
presence of an acute or chronic illness
Acute Illness Chronic Illness
Energy Intake Non Severe: <75% for >7 days Non Severe: <75% for >1 month
Severe: <50% for >5 days Severe: <75% for >1 month
Weight Loss Non Severe: 1-2% over 1 week Non Severe: 5% over 1 month
5% over 1 month 7.5% over 3 months
7.5% over 3 months 10% over 6 months
1 year N/A 20% over 1 year
Severe: >2% over 1 week Severe: >5% over 1 month
>5% over 1 month >7.5% over 3 months
>7.5% over 3 months >10% over 6 months
1 year N/A >20% over 1 year
Body Fat Non Severe: Mild Decrease Non Severe: Mild Loss
Severe: Moderate Decrease Severe: Severe Loss
Muscle Mass Non Severe: Mild Decrease Non Severe: Mild Loss
Severe: Moderate Decrease Severe: Severe Loss
Fluid Accumulation Non Severe: Mild Accumulation Non Severe: Mild Accumulation
Severe: Moderate to severe Severe: Moderate to severe
accumulation accumulation
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
Severe: Measurably reduced Severe: Measurably reduced
Additional criteria that can be used to Determine if Mild or Moderate Malnutrition (Merck Manual 2018)
Mild Moderate Severe
Albumin gm/dl <3.0 gm/dl <2.5 gm/dl <2.0 gm/dl
Pre Albumin mg/dl <15 gm/dl <10 mg/dl <5.0 mg/dl
BMI <18.5 <17 <16
Use of terms such as suspected, likely, concern for, or probable (associated with a specific diagnosis that is being evaluated, monitored, or treated as if it exists) are acceptable and can be coded in the inpatient setting, when documented at the
time of discharge.
Thank you,
MAUDE Aparicio RN
CDI Specialist
available via tiger text
Please use your independent medical judgment in providing your response.
[2024-03-05 11:27] LABS: APTT 90.5 Sec (23.4-35.0)
--- NOTE | 2024-03-05 11:59 | W.PN.UPDATE ---
Update Note
Progress Note Update
patient seen chart reviewed. discussed with nursing. the patient was awake and alert today. discussed with him my observations of him yesterday where he was almost unresponsive and my discussion with his family re the issue of depression. he told
me he feels better today. he does NOT feel that depression plays a role in his condition. he does state that he is simply not used to the SICK role having been healthy for much of his life and this is (understandably)very difficult for him. he does
not feel he needs or wants psych intervention . he told me a bit about his life. 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 we talked about whether he had seen the movie [place] and he told me he'd
read a lot about him although had not seen the movie and believed he was misunderstood and treated badly by his country.....psych will sign off. i did tell patient if he changed his mind and wanted to see psych he should just let staff know.
[2024-03-05] MEDS: ELIQUIS 10 MG PO ×2 (12:51→19:29)
[2024-03-05] MEDS: TYLENOL 650 MG PO ×2 (12:52→23:32)
--- NOTE | 2024-03-05 16:02 | W.PN.HOSP.TC ---
Today's Communication/Plan
-
Transition to Eliquis.
Ensure.
Monitor oral intake.
Physical therapy assessment.
Assessment / Plan
Assessment / Plan
A/P: Patient is an 88y M with PMH significant for metastatic bladder cancer who presents to ED for evaluation of refusal to eat / drink. He is noted to have significant RLE DVT.
Extensive RLE DVT
- Admit for further evaluation and treatment.
- History history of DVT and PE treated with Xarelto prior to diagnosis of cancer. At that time patient completed 3 to 4 months of anticoagulation.
- Initiated on IV heparin for now.
- Vascular Surgery eval appreciated with no clinical indication for surgical intervention
- CT scan of the head and MRI of the brain with stable intracranial metastatic disease and no clear contraindication for systemic anticoagulation. Transition from IV heparin to Eliquis on 03/05.
Failure to Thrive / Anorexia
- Likely multifactorial and secondary to extensive FLOUR BROKER metastatic disease, likely component of dementia, ongoing immunotherapy.
- Patient denies any bothersome symptoms and admits that he simply does not wish to eat / drink.
- That said, he states that he would like to be full code in the event of cardiac arrest, which seems incongruous.
- Continue IV fluids monitoring oral intake.
-Add Ensure
- Discussed with psychiatry. Less likely depressive.
Fever
- Temp in the ED 100.9.
- No focal complaints or exam findings to suggest active infection.
- Fever may be secondary to extensive DVT as noted above, underlying malignancy, etc.
- Will observe off of abx for now and monitor fro any positive culture data, focal symptoms, etc.
CKD IV
Mild Hyponatremia
- Stable. SCr seems at / near known baseline.
- Follow for changes with IVFs, etc.
Metastatic Bladder Cancer.
Extensive metastatic disease to FLOUR BROKER with craniotomy at [facility].
CT head without contrast: Significant decrease in size/volume of bilateral intracranial mass lesions suspicious for metastatic disease seen on prior CT with decreased accompanying edema associated with right-sided parietal lesion. Unfortunately,
without intravenous contrast, determination of any residual mass is markedly limited.
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
MRI of the brain with known metastatic lesions. No evidence of hemorrhagic complications. 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
- Currently on systemic chemo and followed at [facility].
- Patient denies any other current medications.
Discussed with primary oncologist at [facility] Dr Lissy Ochoa. In review of current situation as well as imaging, currently no contraindication for systemic anticoagulation. Also given failure to thrive, low oral intake, addressed possibility
of discussion with family addressing goals of care in the near future.
Normocytic Anemia
- Hgb decreased from prior baseline - but those values are from 2 years ago.
- Heme test stools.
- Monitor for any changes - especially with therapeutic anticoagulation.
Code Status: Full
Anticipated Discharge: 24 - 48 hours
Subjective/Interval History
-
Date of Service: March 05, 2024
Objective Data
-
Labs:
Laboratory Results
03/05/24 03/05/24
04:05 10:55
WBC 4.1 L
Hgb 9.6 L
Hct 28.7 L
Plt Count 145
APTT 90.5 H
Sodium 133 L
Potassium 3.9
Chloride 107
Carbon Dioxide 20 L
BUN 17
Creatinine 1.8 H
Glucose 94
Calcium 8.4
Vital Signs:
Vital Signs
Temp Pulse Resp BP Pulse Ox
99.2 F 81 16 106/62 96
03/05/24 15:53 03/05/24 15:53 03/05/24 15:53 03/05/24 15:53 03/05/24 15:53
I&O
03/04/24 03/05/24 03/06/24
06:59 06:59 06:59
Intake Total 460 / 460 1572 / 1572
Output Total 150 / 150 425 / 425
Balance 310 / 310 1147 / 1147
Physical Exam
-
General: Well Developed and No Apparent Distress
HEENT: Normocephalic, Atraumatic and Moist Mucous Membranes
Respiratory: Clear to Auscultation
Cardiac: Regular Rhythm and S1/S2; Negative Murmur, Rub or Gallop
GI: Soft, Nontender, Nondistended and Normal Bowel Sounds; Negative Organomegaly
Rectal: Deferred by Provider
Musculoskeletal: No Clubbing, No Cyanosis and No Edema
Skin: Negative Rash
Neuro: Nonfocal/Grossly Intact
--- NOTE | 2024-03-05 16:29 | CM ---
Discharge Plan of Care: Therapy recommendation for STR. [employer] list provided. Await preferences.
[2024-03-06] VITALS (7 sets, daily range): BP systolic 105–123; BP diastolic 50–75; BMI 26.8
[2024-03-06 06:43] LABS: % Eosinophils 5.5 % (0-6); % Immature Granulocytes 0.6 % (0-0.5); % Lymphocytes 23.2 % (20.5-51.1); % Neutrophils 50.7 % (42.2-75.2); Absolute Eosinophils 0.2 10^3/uL (0-0.7); Absolute Lymphocytes 0.7 10^3/uL (1.2-3.4); Absolute Monocytes 0.6 10^3/uL (0.1-0.6); Absolute Neutrophils 1.6 10^3/uL (1.4-6.5); Hematocrit 27.3 % (39.0-52.0); Hemoglobin 9.3 g/dL (13.0-18.0); Mean Corp Hgb Conc. 34.1 g/dL (33.0-37.0); Mean Corpuscular Hgb 32.5 pg (27.0-31.0); Mean Corpuscular Volume 95.5 fL (80.0-94.0); Mean Platelet Volume 10.9 fL (7.4-10.4); Nucleated Red Blood Cells % 0 % (-); Platelet Count 133 10^3/uL (130-400); Red Blood Cell Count 2.86 10^6/uL (4.70-6.10); Red Cell Dist. Width 13.6 % (11.5-14.5); White Blood Cell Count 3.1 10^3/uL (4.8-10.8)
[2024-03-06 07:09] LABS: Blood Urea Nitrogen 13 mg/dl (9-20); Calcium 8.5 mg/dl (8.4-10.2); Carbon Dioxide 20 mmol/L (22-30); Chloride 108 mmol/L (98-107); Estimated Creatinine Clearance 33 ml/min; Glucose 92 mg/dl (70-99); Potassium 3.8 mmol/L (3.5-5.1); Sodium 135 mmol/L (135-145); eGFR 38.53
[2024-03-06] MEDS: ELIQUIS 10 MG PO ×2 (08:40→20:11)
[2024-03-06] MEDS: PROTONIX 20 MG PO (08:40)
--- NOTE | 2024-03-06 09:41 | PTCARENOTE ---
pt took all morning medications with chocolate ensure. pt still with poor appetite but drank all of his ensure as of this morning. pt still receiving IVF through his R SQ port at this time. pt is a x1 assist to the chair and has JOSE wrap on RLE for
compression at this time. proper documentation for neurovascular checks in the worklist
--- NOTE | 2024-03-06 10:24 | W.PN.HOSP.TC ---
Today's Communication/Plan
-
renew IVF
cont eliquis
Assessment / Plan
Assessment / Plan
A/P: Patient is an 88y M with PMH significant for metastatic bladder cancer who presents to ED for evaluation of refusal to eat/drink. He is noted to have significant RLE DVT.
Extensive RLE DVT--History history of DVT and PE treated with Xarelto prior to diagnosis of cancer. At that time patient completed 3 to 4 months of anticoagulation--IV heparin off and now on Eliquis (not Xarelto)--Vascular Surgery eval appreciated
with no clinical indication for surgical intervention--CT scan of the head and MRI of the brain with stable intracranial metastatic disease and no clear contraindication for systemic anticoagulation
Failure to Thrive/Anorexia--no appetite--Likely multifactorial and secondary to extensive ETHNOLOGY PROFESSOR metastatic disease, likely component of dementia, ongoing immunotherapy -Continue IV fluids monitoring oral intake -Added Ensure, tolerating-Discussed with
psychiatry. Less likely depressive.
Fever -Temp in the ED 100.9.-No focal complaints or exam findings to suggest active infection-Fever may be secondary to extensive DVT as noted above, underlying malignancy, etc. -Will observe off of abx for now and monitor fro any positive culture
data, focal symptoms, etc.
CKD IV/Mild Hyponatremia- Stable. SCr seems at / near known baseline- Follow for changes with IVFs, etc.
Metastatic Bladder Cancer--Extensive metastatic disease to ETHNOLOGY PROFESSOR with craniotomy at [facility]--Dr. Velazquez discussed with primary oncologist at [place] Dr Lissy Ochoa. In review of current situation as well as imaging, currently no
contraindication for systemic anticoagulation. Also given failure to thrive, low oral intake, addressed possibility of discussion with family addressing goals of care in the near future.
Normocytic Anemia--Hgb decreased from prior baseline - but those values are from 2 years ago-Heme test stools-Monitor for any changes - especially with therapeutic anticoagulation.
Code Status: Full
Anticipated Discharge: > 48 hours
Subjective/Interval History
-
Date of Service: March 06, 2024
pt still has no appetite
no diarrhea
Objective Data
-
Labs:
Laboratory Results
03/06/24
06:28
WBC 3.1 L
Hgb 9.3 L
Hct 27.3 L
Plt Count 133
Sodium 135
Potassium 3.8
Chloride 108 H
Carbon Dioxide 20 L
BUN 13
Creatinine 1.7 H
Glucose 92
Calcium 8.5
Vital Signs:
max temp for 24 hours
03/05/24
23:32
Temp 101.8 F H
Vital Signs
Temp Pulse Resp BP Pulse Ox
99.3 F 81 16 122/66 98
03/06/24 07:25 03/06/24 07:25 03/06/24 07:25 03/06/24 07:25 03/06/24 07:25
I&O
03/05/24 03/06/24 03/07/24
06:59 06:59 06:59
Intake Total 1572 / 1572 1220 / 1220
Output Total 425 / 425 1100 / 1100
Balance 1147 / 1147 120 / 120
Review of Systems
-
All other systems: Reviewed and negative
Physical Exam
-
General: Well Developed, Well Nourished and No Apparent Distress
HEENT: Normocephalic and Atraumatic
Respiratory: Clear to Auscultation; Negative Wheezes, Rales, Rhonchi or Crackles
Cardiac: Regular Rhythm and S1/S2
GI: Soft, Nontender, Nondistended and Normal Bowel Sounds
Musculoskeletal: No Clubbing, No Cyanosis and No Edema
Neuro: Awake and Alert
[2024-03-06] MEDS: LR 1000 IV (12:54)
[2024-03-06] MEDS: TYLENOL 650 MG PO (20:19)
[2024-03-07] VITALS (8 sets, daily range): BP systolic 98–132; BP diastolic 44–83; PULSE 52–102; BMI 26.5
[2024-03-07] MEDS: LR 1000 IV ×2 (01:33→13:38)
[2024-03-07 06:44] LABS: Hematocrit 26.8 % (39.0-52.0); Hemoglobin 9.3 g/dL (13.0-18.0); Mean Corp Hgb Conc. 34.7 g/dL (33.0-37.0); Mean Corpuscular Hgb 32.3 pg (27.0-31.0); Mean Corpuscular Volume 93.1 fL (80.0-94.0); Mean Platelet Volume 10.8 fL (7.4-10.4); Platelet Count 141 10^3/uL (130-400); Red Blood Cell Count 2.88 10^6/uL (4.70-6.10); Red Cell Dist. Width 13.9 % (11.5-14.5); White Blood Cell Count 3.3 10^3/uL (4.8-10.8)
[2024-03-07 07:26] LABS: ALT (SGPT) 12 U/L (0-50); AST (SGOT) 30 U/L (17-59); Albumin 2.6 g/dl (3.5-5.0); Alkaline Phosphatase 45 U/L (38-126); Blood Urea Nitrogen 11 mg/dl (9-20); Calcium 8.5 mg/dl (8.4-10.2); Carbon Dioxide 21 mmol/L (22-30); Chloride 108 mmol/L (98-107); Estimated Creatinine Clearance 33 ml/min; Glucose 94 mg/dl (70-99); Magnesium 1.5 mg/dl (1.6-2.3); Potassium 3.9 mmol/L (3.5-5.1); Sodium 137 mmol/L (135-145); Total Bilirubin 1.1 mg/dl (0.2-1.3); Total Protein 4.9 g/dl (6.3-8.2); eGFR 38.53
[2024-03-07 08:12] LABS: Vitamin B12 982 pg/ml (239-931)
[2024-03-07] MEDS: PROTONIX 20 MG PO (08:14)
[2024-03-07] MEDS: ELIQUIS 10 MG PO ×2 (08:14→19:39)
--- NOTE | 2024-03-07 13:07 | W.PN.HOSP.TC ---
Today's Communication/Plan
-
on Eliquis
d/c planning?
Assessment / Plan
Assessment / Plan
A/P: Patient is an 88y M with PMH significant for metastatic bladder cancer who presents to ED for evaluation of refusal to eat/drink. He is noted to have significant RLE DVT.
Extensive RLE DVT--History history of DVT and PE treated with Xarelto prior to diagnosis of cancer. At that time patient completed 3 to 4 months of anticoagulation--IV heparin off and now on Eliquis (not Xarelto)--Vascular Surgery eval appreciated
with no clinical indication for surgical intervention--CT scan of the head and MRI of the brain with stable intracranial metastatic disease and no clear contraindication for systemic anticoagulation
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
psychiatry. Less likely depressive.
Fever -No focal complaints or exam findings to suggest active infection--Fever may be secondary to extensive DVT as noted above, underlying malignancy, etc. -Will observe off of abx for now and monitor for any positive culture data, focal symptoms,
etc.
CKD IV/Mild Hyponatremia- Stable. SCr seems at / near known baseline- Follow for changes with IVFs, etc.
Metastatic Bladder Cancer--Extensive metastatic disease to SENIOR SAS DEVELOPER with craniotomy at [facility]--Dr. Velazquez discussed with primary oncologist at [place] Dr Lissy Ochoa. In review of current situation as well as imaging, currently no
contraindication for systemic anticoagulation. Also given failure to thrive, low oral intake, addressed possibility of discussion with family addressing goals of care in the near future.
Normocytic Anemia--Hgb decreased from prior baseline - but those values are from 2 years ago-Heme test stools-Monitor for any changes - especially with therapeutic anticoagulation.
Code Status: Full
Anticipated Discharge: > 48 hours
Subjective/Interval History
-
Date of Service: March 07, 2024
pt had large BM--nurse needs to clean pt--he says he is not good--grunting at me (nursing reports he does this depending on his mood)
Objective Data
-
Labs:
Laboratory Results
03/07/24
06:35
WBC 3.3 L
Hgb 9.3 L
Hct 26.8 L
Plt Count 141
Sodium 137
Potassium 3.9
Chloride 108 H
Carbon Dioxide 21 L
BUN 11
Creatinine 1.7 H
Glucose 94
Calcium 8.5
Total Bilirubin 1.1
AST 30
ALT 12
Alkaline Phosphatase 45
Vital Signs:
max temp for 24 hours
03/06/24
20:15
Temp 101.2 F H
Vital Signs
Temp Pulse Resp BP Pulse Ox
99.0 F 85 18 123/83 94
03/07/24 08:00 03/07/24 08:00 03/07/24 08:00 03/07/24 08:00 03/07/24 08:00
I&O
03/06/24 03/07/24 03/08/24
06:59 06:59 06:59
Intake Total 1220 / 1220 700 / 700
Output Total 1100 / 1100 400 / 400 75 / 75
Balance 120 / 120 300 / 300 -75 / -75
Review of Systems
-
Unable to obtain full review of systems at this time due to: Other (pt says not well but won't elaborate)
Physical Exam
-
General: Well Developed, Well Nourished and No Apparent Distress
HEENT: Normocephalic and Atraumatic
Respiratory: Clear to Auscultation; Negative Wheezes or Rhonchi
Cardiac: Regular Rhythm and S1/S2; Negative Murmur
GI: Soft, Nontender, Nondistended and Normal Bowel Sounds
Musculoskeletal: No Clubbing, No Cyanosis and No Edema
Skin: Warm and Dry
Neuro: Awake
Psych: Calm
[2024-03-07] MEDS: MAGNESIUM SULFATE 100 IV (13:34)
[2024-03-07] MEDS: TYLENOL 650 MG PO (19:40)
[2024-03-08] VITALS (7 sets, daily range): BP systolic 101–148; BP diastolic 55–73; BMI 26.6
[2024-03-08] MEDS: LR 1000 IV ×2 (05:16→18:10)
[2024-03-08 06:26] LABS: Hematocrit 26.1 % (39.0-52.0); Mean Corp Hgb Conc. 34.5 g/dL (33.0-37.0); Mean Corpuscular Hgb 32.4 pg (27.0-31.0); Mean Corpuscular Volume 93.9 fL (80.0-94.0); Mean Platelet Volume 11.2 fL (7.4-10.4); Platelet Count 156 10^3/uL (130-400); Red Blood Cell Count 2.78 10^6/uL (4.70-6.10); Red Cell Dist. Width 13.8 % (11.5-14.5); White Blood Cell Count 2.8 10^3/uL (4.8-10.8)
[2024-03-08 06:42] LABS: NT-proBNP 778 pg/ml
[2024-03-08 06:45] LABS: ALT (SGPT) 14 U/L (0-50); AST (SGOT) 30 U/L (17-59); Albumin 2.5 g/dl (3.5-5.0); Alkaline Phosphatase 48 U/L (38-126); Blood Urea Nitrogen 10 mg/dl (9-20); Calcium 8.2 mg/dl (8.4-10.2); Carbon Dioxide 25 mmol/L (22-30); Chloride 107 mmol/L (98-107); Estimated Creatinine Clearance 31 ml/min; Glucose 97 mg/dl (70-99); Magnesium 2.2 mg/dl (1.6-2.3); Potassium 3.9 mmol/L (3.5-5.1); Sodium 137 mmol/L (135-145); Total Bilirubin 0.9 mg/dl (0.2-1.3); Total Protein 4.7 g/dl (6.3-8.2); eGFR 35.98
[2024-03-08] MEDS: PROTONIX 20 MG PO (08:41)
[2024-03-08] MEDS: ELIQUIS 10 MG PO ×2 (08:41→20:18)
--- NOTE | 2024-03-08 13:48 | W.PN.ONC ---
Today's Communication / Plan
-
Follow up at [facility] for continued VTE and oncologic management and ongoing goals of care
Impression
Impression
Extensive right lower extremity DVT extending into the iliac
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
Currently on Padcev (EV) at dose modified schedule
Brain MRI 'new metastatic lesions', however, compared to MRI 2018 so would be more helpful if compared to recent MRI at [facility]
Failure to thrive
Change in mental status
Restlessness
Fatigue
Plan
Plan
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
continue DOAC
Subjective/Objective
Subjective/Objective
102.8F overnight, no hypoxia or hypotension
no overt bleeding
Vital Signs:
Vital Signs
Temp Pulse Resp BP Pulse Ox
99.1 F 78 16 148/69 98
03/08/24 12:46 03/08/24 12:46 03/08/24 12:46 03/08/24 12:46 03/08/24 12:46
Lab Results:
Laboratory Data
WBC 2.8 10^3/uL (4.8-10.8) L 03/08/24 05:48
Hgb 9.0 g/dL (13.0-18.0) L 03/08/24 05:48
Plt Count 156 10^3/uL (130-400) 03/08/24 05:48
APTT 90.5 Sec (23.4-35.0) H 03/05/24 10:55
eGFR 35.98 03/08/24 05:48
--- NOTE | 2024-03-08 15:02 | W.PN.HOSP.TC ---
Today's Communication/Plan
-
Has been transitioned from IV heparin to Eliquis
Stable hemoglobin.
Stable neurologic status while on systemic anticoagulation
Minimal oral intake reported including Ensure.
Physical therapy assessment
Discharge planing for longterm facility.
Assessment / Plan
Assessment / Plan
A/P: Patient is an 88y M with PMH significant for metastatic bladder cancer who presents to ED for evaluation of refusal to eat/drink. He is noted to have significant RLE DVT.
Extensive RLE DVT--History history of DVT and PE treated with Xarelto prior to diagnosis of cancer. At that time patient completed 3 to 4 months of anticoagulation--IV heparin off and now on Eliquis (not Xarelto)--Vascular Surgery eval appreciated
with no clinical indication for surgical intervention--CT scan of the head and MRI of the brain with stable intracranial metastatic disease and no clear contraindication for systemic anticoagulation
Failure to Thrive/Anorexia--no appetite--Likely multifactorial and secondary to extensive LINING LAYER metastatic disease, likely component of dementia, ongoing immunotherapy -Continue IV fluids monitoring oral intake -Added Ensure, large BM--Discussed with
psychiatry. Less likely depressive.
Fever -No focal complaints or exam findings to suggest active infection--Fever may be secondary to extensive DVT as noted above, underlying malignancy, etc. -Will observe off of abx for now and monitor for any positive culture data, focal symptoms,
etc.
CKD IV/Mild Hyponatremia- Stable. SCr seems at / near known baseline- Follow for changes with IVFs, etc.
Metastatic Bladder Cancer--Extensive metastatic disease to LINING LAYER with craniotomy at [facility]--Dr. Velazquez discussed with primary oncologist at [place] Dr Lissy Ochoa. In review of current situation as well as imaging, currently no
contraindication for systemic anticoagulation. Also given failure to thrive, low oral intake, addressed possibility of discussion with family addressing goals of care in the near future.
Normocytic Anemia--Hgb decreased from prior baseline - but those values are from 2 years ago-Heme test stools-Monitor for any changes - especially with therapeutic anticoagulation.
Code Status: Full
Anticipated Discharge: 24 - 48 hours
Subjective/Interval History
-
Date of Service: March 08, 2024
Objective Data
-
Labs:
Laboratory Results
03/08/24
05:48
WBC 2.8 L
Hgb 9.0 L
Hct 26.1 L
Plt Count 156
Sodium 137
Potassium 3.9
Chloride 107
Carbon Dioxide 25
BUN 10
Creatinine 1.8 H
Glucose 97
Calcium 8.2 L
Total Bilirubin 0.9
AST 30
ALT 14
Alkaline Phosphatase 48
Vital Signs:
Vital Signs
Temp Pulse Resp BP Pulse Ox
99.1 F 78 16 148/69 98
03/08/24 12:46 03/08/24 12:46 03/08/24 12:46 03/08/24 12:46 03/08/24 12:46
I&O
03/07/24 03/08/24 03/09/24
06:59 06:59 06:59
Intake Total 1540 / 1540 1280 / 1280
Output Total 400 / 400 675 / 675 100 / 100
Balance 1140 / 1140 605 / 605 -100 / -100
Physical Exam
-
General: Well Developed and No Apparent Distress
HEENT: Normocephalic, Atraumatic and Moist Mucous Membranes
Respiratory: Clear to Auscultation
Cardiac: Regular Rhythm and S1/S2; Negative Murmur, Rub or Gallop
GI: Soft, Nontender, Nondistended and Normal Bowel Sounds; Negative Organomegaly
Rectal: Deferred by Provider
Musculoskeletal: No Clubbing, No Cyanosis and No Edema
Skin: Negative Rash
Neuro: Nonfocal/Grossly Intact
--- NOTE | 2024-03-08 15:50 | CM ---
Discharge Plan of Care: SNF. Family is visiting facilities. Four preferences so far: [facility]; [facility]; [facility]; and [facility] . Referrals have been forwarded.
[2024-03-08] MEDS: TYLENOL 650 MG PO (20:17)
[2024-03-09 03:23] VITALS: BP 137/62
[2024-03-09 06:00] VITALS: BMI 26.7
[2024-03-09 07:27] VITALS: BP 113/59
[2024-03-09] MEDS: ELIQUIS 10 MG PO ×2 (08:32→21:03)
[2024-03-09] MEDS: PROTONIX 20 MG PO (08:33)
[2024-03-09 11:50] VITALS: BP 129/70
--- NOTE | 2024-03-09 13:20 | W.PN.HOSP.TC ---
Today's Communication/Plan
-
Continue oral anticoagulation
Continue physical therapy
Monitor oral intake
Medically stable for placement to longterm facility.
Assessment / Plan
Assessment / Plan
A/P: Patient is an 88y M with PMH significant for metastatic bladder cancer who presents to ED for evaluation of refusal to eat/drink. He is noted to have significant RLE DVT.
Extensive RLE DVT--History history of DVT and PE treated with Xarelto prior to diagnosis of cancer. At that time patient completed 3 to 4 months of anticoagulation--IV heparin off and now on Eliquis (not Xarelto)--Vascular Surgery eval appreciated
with no clinical indication for surgical intervention--CT scan of the head and MRI of the brain with stable intracranial metastatic disease and no clear contraindication for systemic anticoagulation
Failure to Thrive/Anorexia--no appetite--Likely multifactorial and secondary to extensive HEAD OF BIOLOGY metastatic disease, likely component of dementia, ongoing immunotherapy -Continue IV fluids monitoring oral intake -Added Ensure, large BM--Discussed with
psychiatry. Less likely depressive.
Fever -No focal complaints or exam findings to suggest active infection--Fever may be secondary to extensive DVT as noted above, underlying malignancy, etc. -Will observe off of abx for now and monitor for any positive culture data, focal symptoms,
etc.
CKD IV/Mild Hyponatremia- Stable. SCr seems at / near known baseline- Follow for changes with IVFs, etc.
Metastatic Bladder Cancer--Extensive metastatic disease to HEAD OF BIOLOGY with craniotomy at [facility]--Dr. Velazquez discussed with primary oncologist at [place] Dr Lissy Ochoa. In review of current situation as well as imaging, currently no
contraindication for systemic anticoagulation. Also given failure to thrive, low oral intake, addressed possibility of discussion with family addressing goals of care in the near future.
Normocytic Anemia--Hgb decreased from prior baseline - but those values are from 2 years ago-Heme test stools-Monitor for any changes - especially with therapeutic anticoagulation.
Code Status: Full
Anticipated Discharge: Within 24 hours
Subjective/Interval History
-
Date of Service: March 09, 2024
Objective Data
-
Vital Signs:
Vital Signs
Temp Pulse Resp BP Pulse Ox
98.4 F 80 16 129/70 97
03/09/24 11:50 03/09/24 11:50 03/09/24 11:50 03/09/24 11:50 03/09/24 11:50
I&O
03/08/24 03/09/24 03/10/24
06:59 06:59 06:59
Intake Total 1280 / 1280 480 / 480
Output Total 675 / 675 100 / 100
Balance 605 / 605 380 / 380
Physical Exam
-
General: Well Developed and No Apparent Distress
HEENT: Normocephalic, Atraumatic and Moist Mucous Membranes
Respiratory: Clear to Auscultation
Cardiac: Regular Rhythm and S1/S2; Negative Murmur, Rub or Gallop
GI: Soft, Nontender, Nondistended and Normal Bowel Sounds; Negative Organomegaly
Rectal: Deferred by Provider
Musculoskeletal: No Clubbing, No Cyanosis and No Edema
Skin: Negative Rash
Neuro: Nonfocal/Grossly Intact
[2024-03-09 15:42] VITALS: BP 108/49
--- NOTE | 2024-03-09 16:32 | CM ---
Therapy recommendation for [facility]. SonJoss, touring facilities. Four [facility] referrals have been forwarded. Awaiting family decision.
--- NOTE | 2024-03-09 17:01 | PTCARENOTE ---
made aware. pt vs: 99.5, 108/48, 97%RA, 90, 16. denies pain or discomfort at this time. No new orders at this time.plan of care ongoing.
[2024-03-09 19:34] VITALS: BP 122/69
[2024-03-09 23:28] VITALS: BP 117/68
[2024-03-10 03:29] VITALS: BP 126/69
[2024-03-10 04:56] VITALS: BMI 26.6
[2024-03-10 07:15] VITALS: BP 127/73
--- NOTE | 2024-03-10 07:33 | W.PN.ONC2 ---
Today's Communication / Plan
-
Hematology will sign off. Call for future questions.
Impression
Impression
Extensive right lower extremity DVT extending into the iliac
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
Currently on Padcev (EV) at dose modified schedule
Brain MRI 'new metastatic lesions', however, compared to MRI 2019 so would be more helpful if compared to recent MRI at [facility]
Failure to thrive
Change in mental status
Restlessness
Fatigue
Plan
Plan
Follow up at [facility] for continued VTE and oncologic management and ongoing goals of care
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
continue DOAC
Subjective/Objective
Chief Complaint
ACS Heme Onc
Subjective
No reported complaints. Awaiting SNF placement.
Vital Signs:
Vital Signs
Temp Pulse Resp BP Pulse Ox
99.0 F 85 18 127/73 96
03/10/24 07:15 03/10/24 07:15 03/10/24 07:15 03/10/24 07:15 03/10/24 07:15
Lab Results:
Laboratory Data
WBC 2.8 10^3/uL (4.8-10.8) L 03/08/24 05:48
Hgb 9.0 g/dL (13.0-18.0) L 03/08/24 05:48
Plt Count 156 10^3/uL (130-400) 03/08/24 05:48
APTT 90.5 Sec (23.4-35.0) H 03/05/24 10:55
eGFR 35.98 03/08/24 05:48
[2024-03-10] MEDS: PROTONIX 20 MG PO (08:21)
[2024-03-10] MEDS: ELIQUIS 10 MG PO (08:21)
[2024-03-10 11:05] VITALS: BP 133/80
--- NOTE | 2024-03-10 11:06 | CM ---
Addendum entered by Asad Pritchett 03/10/24 13:38:
Ambulance transport scheduled for 4:30 PM. Son (Joss), [facility] admissions and team notified.
Original Note:
Patient has been medically cleared for discharge to [facility] for fpc and rehab services. Awaiting time for ambulance transport.
NURSE TO NURSE # [phone]
FAX # [phone]
--- NOTE | 2024-03-10 12:18 | W.DS.TRANS ---
DC Summary - Unit Receptionist
-
Discharge Instructions:
Discharge Diagnosis/Procedures Right lower extremity DVT.
Metastatic transitional cell carcinoma.
Failure to thrive.
Diet Regular
Additional Diets Ensure BID
Instructions:
Stand-Alone Forms:
Changes to Home Medications: Yes
Discharge Medications:
DC Medications w/original date entered in [facility]
acetaminophen 500 mg tablet 500 mg PO Q6H PRN mild pain/fever 03/03/24
apixaban 5 mg tablet (Eliquis) 10 mg (2 x 5 mg) PO BID #60 tabs 03/10/24
pantoprazole 20 mg tablet,delayed release 20 mg PO DAILY #30 tabs 03/10/24
Home Medication Changes
Eliquis and PPI added.
Pending Results: No
[2024-03-10 15:10] VITALS: BP 122/66
== END 2024-03-10 16:53 | DRG 54 ==
LOC: 2 NORTH 01:29
PROVIDERS: Clinical Nurse Specialist Family Health; Internal Medicine; ADMITTING PHYSICIAN Hospitalist; ATTENDING PHYSICIAN Internal Medicine; EMERGENCY PHYSICIAN Emergency Medicine; FAMILY PHYSICIAN Family Medicine; OTHER PHYSICIAN Internal Medicine Hematology & Oncology; OTHER PHYSICIAN Psychiatry & Neurology Psychiatry; OTHER PHYSICIAN Surgery Vascular Surgery
DX: C79.31 Secondary malignant neoplasm of brain (principal); E43 Unspecified severe protein-calorie malnutrition; I82.411 Acute embolism and thrombosis of right femoral vein; C79.51 Secondary malignant neoplasm of bone; N18.4 Chronic kidney disease, stage 4 (severe); E87.1 Hypo-osmolality and hyponatremia; R62.7 Adult failure to thrive; E78.00 Pure hypercholesterolemia, unspecified; J45.909 Unspecified asthma, uncomplicated; C67.9 Malignant neoplasm of bladder, unspecified; R50.9 Fever, unspecified; I72.3 Aneurysm of iliac artery; D64.9 Anemia, unspecified; I71.40 Abdominal aortic aneurysm, without rupture, unspecified; Z86.718 Personal history of other venous thrombosis and embolism; Z85.53 Personal history of malignant neoplasm of renal pelvis; Z86.711 Personal history of pulmonary embolism; Z92.21 Personal history of antineoplastic chemotherapy; Z68.26 Body mass index [BMI] 26.0-26.9, adult
CPT/HCPCS: 70450; 70553; 71046; 74177; 80048; 80053; 82607; 83605; 83735; 83880; 84443; 85025; 85027; 85730; 87040; 87502; 87811; 93005; 93971; 96360; 97116; 97163; 97167; 97530; 99285; A9575; Q9967

== ENCOUNTER 2024-08-03 15:34 | Inpatient (IN) | payer MEDICARE, BC, SELFPAY ==
[2024-08-03] VITALS (11 sets, daily range): BP systolic 101–128; BP diastolic 53–69; BMI 23.7; BMI 23.4
--- NOTE | 2024-08-03 11:04 | ED.GENMED ---
History of Present Illness
<Carrie Leavitt PA-C - Last Filed: 08/03/24 17:44>
General
Chief Complaint: Urinary Symptoms
Source: patient
Exam Limitations: none
Time Seen by Provider: 08/03/24 11:02
Nursing documentation reviewed up to this point in time: agreed with
History of Present Illness
History of Present Illness:
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 Patient noted to have worse fatigue and weakness
yesterday evening around 10 PM prior to going to bed. This morning apparently patient woke up and was soaked in urine. Patient's granddaughter did help him ambulate to the bathroom where he seemed very weak and unsteady. She does report somewhat
increased confusion, as well. Patient specifically denies any chest pain, shortness of breath, abdominal pain, or dysuria.
Apparently�patient was at his baseline health yesterday.
911 was called due to patient's generalized weakness and worsening confusion.
Past History
<Carrie Leavitt PA-C - Last Filed: 08/03/24 17:44>
Past History
ED Past Medical History: Asthma, Cancer (Bladder cancer, Brain and spine), Hypercholesterolemia and Other (DVT right leg)
ED Past Surgical History: Orthopedic (Right Achilles tear repair), Tonsilectomy, Urological and Other (Hernia, Cataracts)
Social History
Tobacco: Non-smoker
Alcohol: None
Personal:
Living: with family
Employment: Retired
Review of Systems
<Carrie Leavitt PA-C - Last Filed: 08/03/24 17:44>
Review of Systems
Allergies reviewed?: Yes
All Other Systems: ROS reviewed and negative except as documented in HPI and ROS
Phy Exam
<Carrie Leavitt PA-C - Last Filed: 08/03/24 17:44>
Physical Exam
Physical Exam:
Vitals: Febrile to 102.3F. Otherwise�vital signs stable.
General: Patient is chronically ill-appearing, no acute distress
Skin: Warm and dry, no rashes or lesions
Head: Normocephalic, atraumatic
Eyes: Sclera nonicteric. EOMs intact. No nystagmus.
Throat: Protecting airway
Neck: Normal ROM, no cervical spine tenderness, no meningismus
Cardiac: Regular rate and rhythm, no murmurs.
Pulm: Normal respiratory effort, no wheezes, rales, rhonchi heard on exam.
Abdomen: Abdomen soft. No abdominal tenderness. No CVA tenderness
Extremities: No evidence of cyanosis or edema. Palpable and equal distal pulses
Neuro: AAOx3. Grossly intact.
Psychiatric: Normal affect.
Course
<Carrie Leavitt PA-C - Last Filed: 08/03/24 17:44>
Orders/Labs/Results
Orders:
Orders
08/03/24 11:26
0.9% Sodium Chloride 1000 ml [Nss] 1,000 ml IV BOLUS
Acetaminophen [Tylenol] 1,000 mg PO NOW STA
08/03/24 11:27
CT Head W/o Iv Contrast Urgent
Comment: hx metastatic bladder CA
Reason For Exam: Confusion, weakness
CR Chest - 2 Views Urgent
Comment:
Reason For Exam: Fever
08/03/24 11:28
Electrocardiogram (*1) Urgent
Reason for Study: Fatigue / Weakness
EKG- Treatment ONCE
Blood Culture Urgent
ROBIN Source: Blood/Venous
Specimen Description:
08/03/24 11:39
CBC/With Diff [Complete Blood Count/With Diff] Urgent
CMP [Comprehensive Metabolic Panel] Urgent
Lactic Acid Urgent
Blood Culture Urgent
ROBIN Source: Blood/Venous
Specimen Description:
08/03/24 12:00
COVID-19 Antigen Urgent
Source: Nasal Swab
Urinalysis Reflex To Culture Urgent
Date Specimen was Collected: 08/03/24
Time Specimen was Collected: 11:48
Urine Microscopic Reflex Cult Urgent
Influenza A+B Rapid Molecular Urgent
ROBIN Source: Nasal Swab
Specimen Description:
Urine Culture Urgent
ROBIN Source: U
Specimen Description:
Date Specimen was Collected: 08/03/24
Time Specimen was Collected: 11:48
Comment: Add on by Carrie Leavitt PA-C
08/03/24 13:39
Add On - Microbiology Urgent
Tests Added?: urine culture
Cefepime HCl [Maxipime] 2,000 mg IV NOW STA
Vancomycin 1 Gram/200 ml [Vancocin] 1 gram in 200 ml IV NOW
08/03/24 15:03
Admit/Transfer Patient As Directed
Co-Sign Provider:
Level of Care: Inpatient admission
Assign to:: IMU- Intermediate Care
Physician / Group: Hospitalists
Diagnosis: Encephalopathy
Reason for Hospitalization: Altered mental status, confusion, weakness
Expected length of stay greater than two midnights?: Yes
ELOS- Estimated Length of Stay in days: 4
I certify the patient meets the requirements for IP care: Yes
PRN Pain Medication Management As Directed
May give lesser potent ordered pain med per pt: Yes
preference::
Protocol:: Medication orders for pain may be administered in a
manner that supports deferring to patient preference
when the pt is:
- Requesting an ordered lesser potent pain medication.
Least to most potent pain medications are defined
as: acetaminophen < NSAID < tramadol < opioids
(morphine, oxycodone, hydromorphone).
- Requesting a lesser dose of the same medication IF
ORDERED.
- Requesting a less intrusive route of administration
if both routes are prescribed by the provider (PO <
IV).
08/03/24 15:14
Code Status As Directed
Resuscitation Status: Full Code
08/03/24 16:45
Acetaminophen [Tylenol] 650 mg PO TID
Hydrocortisone [Cortef] 10 mg PO DAILY
Oxycodone/Acetaminophen [Percocet 5/325] 1 tablet PO DAILYPRN PRN
08/03/24 16:45
Activity As Directed
Activity Level: As Tolerated
Sequential Compression Device [Pneumatic Compression Sleeves] As Directed
Type: Knee high
DX Deep Vein Thrombosis Video Routine
08/03/24 20:00
Hydrocortisone [Cortef] 5 mg PO BID@1400,2000
08/03/24 22:00
Morphine Sulfate Extended Rel. [Ms Contin (Extended Release)] 15 mg PO HS
08/04/24 06:00
Complete Blood Count/No Diff IN AM
Comprehensive Metabolic Panel IN AM
Magnesium IN AM
Phosphorus IN AM
08/04/24 08:00
Calcium Carbonate [Oscal Chase 500] 1,000 mg PO DAILY
Cholecalciferol (Vitamin D3) [VITAMIN D3 (cholecalciferol)] 25 mcg PO DAILY
Abnormal Lab Results
08/03/24 08/03/24
11:39 12:00
RBC 3.47 L 10^6/uL
(4.70-6.10)
Hgb 10.8 L g/dL
(13.0-18.0)
Hct 30.2 L %
(39.0-52.0)
MCH 31.1 H pg
(27.0-31.0)
Absolute Monos (auto) 0.9 H 10^3/uL
(0.1-0.6)
Monocytes % 14.6 H %
(1.7-9.3)
BUN 35 H mg/dl
(9-20)
Creatinine 1.7 H mg/dL
(0.7-1.3)
Total Bilirubin 1.5 H mg/dl
(0.2-1.3)
AST 15 L U/L
(17-59)
Total Protein 6.1 L g/dl
(6.3-8.2)
Ur Occult Blood Reflex 3+ A
(Negative)
Urine RBC 11-15 A /HPF
(0-2)
Urine Bacteria (Reflex) Few A
(Negative)
08/03/24 11:39
08/03/24 11:39
Vital Signs
Initial and Last Documented VS:
Initial Vital Signs
Temp Pulse Resp BP Pulse Ox
102.3 F H 82 18 123/67 99
08/03/24 11:00 08/03/24 11:00 08/03/24 11:00 08/03/24 11:00 08/03/24 11:00
Last Documented Vital Signs
Temp Pulse Resp BP Pulse Ox
98.4 F 57 13 102/57 97
08/03/24 16:55 08/03/24 16:30 08/03/24 16:30 08/03/24 16:00 08/03/24 15:41
Donavonlt;Malvin Epps DO - Last Filed: 08/03/24 12:37>
Orders/Labs/Results
Orders:
Orders
08/03/24 11:26
0.9% Sodium Chloride 1000 ml [Nss] 1,000 ml IV BOLUS
Acetaminophen [Tylenol] 1,000 mg PO NOW STA
08/03/24 11:27
CT Head W/o Iv Contrast Urgent
Comment: hx metastatic bladder CA
Reason For Exam: Confusion, weakness
CR Chest - 2 Views Urgent
Comment:
Reason For Exam: Fever
08/03/24 11:28
Electrocardiogram (*1) Urgent
Reason for Study: Fatigue / Weakness
EKG- Treatment ONCE
Blood Culture Urgent
ROBIN Source: Blood/Venous
Specimen Description:
08/03/24 11:39
CBC/With Diff [Complete Blood Count/With Diff] Urgent
CMP [Comprehensive Metabolic Panel] Urgent
Lactic Acid Urgent
Blood Culture Urgent
ROBIN Source: Blood/Venous
Specimen Description:
08/03/24 12:00
COVID-19 Antigen Urgent
Source: Nasal Swab
Urinalysis Reflex To Culture Urgent
Date Specimen was Collected: 08/03/24
Time Specimen was Collected: 11:48
Urine Microscopic Reflex Cult Urgent
Influenza A+B Rapid Molecular Urgent
ROBIN Source: Nasal Swab
Specimen Description:
Urine Culture Urgent
ROBIN Source: U
Specimen Description:
Date Specimen was Collected: 08/03/24
Time Specimen was Collected: 11:48
Comment: Add on by Carrie Leavitt PA-C
08/03/24 13:39
Add On - Microbiology Urgent
Tests Added?: urine culture
Cefepime HCl [Maxipime] 2,000 mg IV NOW STA
Vancomycin 1 Gram/200 ml [Vancocin] 1 gram in 200 ml IV NOW
08/03/24 15:03
Admit/Transfer Patient As Directed
Co-Sign Provider:
Level of Care: Inpatient admission
Assign to:: IMU- Intermediate Care
Physician / Group: Hospitalists
Diagnosis: Encephalopathy
Reason for Hospitalization: Altered mental status, confusion, weakness
Expected length of stay greater than two midnights?: Yes
ELOS- Estimated Length of Stay in days: 4
I certify the patient meets the requirements for IP care: Yes
PRN Pain Medication Management As Directed
May give lesser potent ordered pain med per pt: Yes
preference::
Protocol:: Medication orders for pain may be administered in a
manner that supports deferring to patient preference
when the pt is:
- Requesting an ordered lesser potent pain medication.
Least to most potent pain medications are defined
as: acetaminophen < NSAID < tramadol < opioids
(morphine, oxycodone, hydromorphone).
- Requesting a lesser dose of the same medication IF
ORDERED.
- Requesting a less intrusive route of administration
if both routes are prescribed by the provider (PO <
IV).
08/03/24 15:14
Code Status As Directed
Resuscitation Status: Full Code
08/03/24 16:45
Acetaminophen [Tylenol] 650 mg PO TID
Hydrocortisone [Cortef] 10 mg PO DAILY
Oxycodone/Acetaminophen [Percocet 5/325] 1 tablet PO DAILYPRN PRN
08/03/24 16:45
Activity As Directed
Activity Level: As Tolerated
Sequential Compression Device [Pneumatic Compression Sleeves] As Directed
Type: Knee high
DX Deep Vein Thrombosis Video Routine
08/03/24 20:00
Hydrocortisone [Cortef] 5 mg PO BID@1400,2000
08/03/24 22:00
Morphine Sulfate Extended Rel. [Ms Contin (Extended Release)] 15 mg PO HS
08/04/24 06:00
Complete Blood Count/No Diff IN AM
Comprehensive Metabolic Panel IN AM
Magnesium IN AM
Phosphorus IN AM
08/04/24 08:00
Calcium Carbonate [Oscal [place] 500] 1,000 mg PO DAILY
Cholecalciferol (Vitamin D3) [VITAMIN D3 (cholecalciferol)] 25 mcg PO DAILY
Abnormal Lab Results
08/03/24 08/03/24
11:39 12:00
RBC 3.47 L 10^6/uL
(4.70-6.10)
Hgb 10.8 L g/dL
(13.0-18.0)
Hct 30.2 L %
(39.0-52.0)
MCH 31.1 H pg
(27.0-31.0)
Absolute Monos (auto) 0.9 H 10^3/uL
(0.1-0.6)
Monocytes % 14.6 H %
(1.7-9.3)
BUN 35 H mg/dl
(9-20)
Creatinine 1.7 H mg/dL
(0.7-1.3)
Total Bilirubin 1.5 H mg/dl
(0.2-1.3)
AST 15 L U/L
(17-59)
Total Protein 6.1 L g/dl
(6.3-8.2)
Ur Occult Blood Reflex 3+ A
(Negative)
Urine RBC 11-15 A /HPF
(0-2)
Urine Bacteria (Reflex) Few A
(Negative)
08/03/24 11:39
08/03/24 11:39
Vital Signs
Initial and Last Documented VS:
Initial Vital Signs
Temp Pulse Resp BP Pulse Ox
102.3 F H 82 18 123/67 99
08/03/24 11:00 08/03/24 11:00 08/03/24 11:00 08/03/24 11:00 08/03/24 11:00
Last Documented Vital Signs
Temp Pulse Resp BP Pulse Ox
98.4 F 57 13 102/57 97
08/03/24 16:55 08/03/24 16:30 08/03/24 16:30 08/03/24 16:00 08/03/24 15:41
<Carrie Leavitt PA-C - Last Filed: 08/03/24 17:44>
MDM/Problems Addressed
Differential Diagnosis Includes:
Not limited to: UTI, urosepsis, viral illness, pneumonia, bacteremia, metastatic disease, CVA
MDM/Problems Addressed:
88-year-old male with history as documented presenting with generalized weakness and lethargy. Patient found to be febrile to 102.3F on arrival to emergency department. Otherwise vital signs stable. Patient unable to contribute much to history.
Patient given a gram of Tylenol. Physical exam as above. Patient with no meningeal signs or focal neurologic deficits. Abdomen soft and nontender. Lungs clear bilaterally. An extensive workup was initiated including labs, lactic acid,
urinalysis, blood cultures and urine cultures. Viral swabs were collected. Chest x-ray and head CT were ordered. EKG shows no acute ischemic changes.
Update: Labs noted. Stable anemia with hemoglobin of 10.8. Mild renal insufficiency noted which appears stable with creatinine 1.7. Otherwise no clinically significant laboratory abnormalities. Urine does not appear infected, does show red blood
cells likely secondary to bladder cancer. Viral swabs negative. Chest x-ray without signs of acute disease. Head CT does show evidence of metastatic lesions in 1 focal area of hypodensity either subacute infarct versus metastatic lesion�suspect
likely worsening metastatic disease. Given fever of unknown origin�will initiate broad-spectrum antibiotics with cefepime and vancomycin pending urine and blood cultures. Patient will require admission to the hospital for IV antibiotics, further
monitoring. Plan for likely MRI brain for better differentiation of focal lesions noted on head CT scan. Patient admitted to hospitalist in stable condition. Patient seen with attending physician.
Chronic conditions affecting care:
Metastatic bladder cancer with mets to the brain
Acute Exacerbation and/or Progression of Chronic Illness:
N/A
<Carrie Leavitt PA-C - Last Filed: 08/03/24 17:44>
*Radiology
Radiology exam reviewed: preliminary read by ED provider and radiology read reviewed
*Pulse Oximetry
Patient hypoxic: no
*EKG
Interpreted by ED Provider?: Yes
EKG Intrepretation Date: 08/03/24
Interpretation: normal
Comparison EKG: changes noted
Heart Rate: 72
Rate: normal
Rhythm: sinus
Interval: normal interval
QRS Pattern: normal QRS
Ischemia: no ischemia
*Autopsy Pathologist Interpretation
Rate: normal
Interpretation: normal
Heart Rate: 80
Rhythm: sinus
*Critical Care Note
Total Time (30-74mins, 75-104mins- exclusive of procedures): Not Applicable
<Carrie Leavitt PA-C - Last Filed: 08/03/24 17:44>
Patient Management
Discussion with other providers: Hospitalist
Escalation/DeEscalation of care consider admission/obs:
Admit for IV antibiotics given fever of unknown origin pending blood and urine cultures
ED Attending Note
<Carrie Leavitt PA-C - Last Filed: 08/03/24 17:44>
-
Portions of this chart may have been created with voice recognition software.� Occasional wrong word or��sound alike� substitutions may have occurred due to the inherent limitations of voice recognition software.
<Malvin Epps, - Last Filed: 08/03/24 12:37>
ED Attending Note
Patient seen and examined by attending physician: Yes
I performed the substantive portion of visit, reviewed & personally made and approve the management plan that is documented in note by myself or KALIN.: Yes
ED Attending Note:
I agree with Trina's note
Patient noted to have increased confusion and lethargy. Noted to have fever here on arrival to. Patient unable provide much history. 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
adrenal resections and a metastatic lesion to the brain that was resected. He is also had radiation.
General: Sleeping but arousable
Vitals: febrile
Head: Atraumatic
Eyes: Pupils equal, EOMI
Throat: Airway intact, no exudates
Neck: Trachea midline
Lungs: Clear and equal b/l
Heart: Regular rate, no murmurs
Abd: Soft, Nontender, No pulsatile mass
Neuro: nonfocal
Skin: Warm, dry, no rash
Extremities: pulses equal b/l, no edema
Discharge Plan
Departure
Patient Disposition: Admit
Date of Disposition: 08/03/24
Time of Disposition: 13:43
Presentation/result/management discussed w/ accepting MD/DO: Hospitalist
Discharge Problem:
Fever, Weakness
Interventions
Interventions:
*Risk Screen - Suicide Last Done: 08/03/24 11:00
*General Assessment Last Done: 08/03/24 11:00
*Neglect/Abuse Screening Last Done: 08/03/24 11:00
*ED COVID-19 Vaccine History Last Done: 08/03/24 11:38
*Nursing Disposition Last Done: 08/03/24 16:38
ED-Male Genitourinary Assessment Last Done: 08/03/24 11:38
Discharge Date and Time
Discharge Date/Time: 08/03/24 16:39
[2024-08-03] MEDS: TYLENOL 1000 MG PO (11:51)
[2024-08-03 11:53] LABS: % Basophils 0.3 % (0-2); % Immature Granulocytes 0.5 % (0-0.5); % Lymphocytes 22.2 % (20.5-51.1); % Monocytes 14.6 % (1.7-9.3); % Neutrophils 61.4 % (42.2-75.2); Absolute Eosinophils 0.1 10^3/uL (0-0.7); Absolute Lymphocytes 1.3 10^3/uL (1.2-3.4); Absolute Monocytes 0.9 10^3/uL (0.1-0.6); Absolute Neutrophils 3.7 10^3/uL (1.4-6.5); Hematocrit 30.2 % (39.0-52.0); Hemoglobin 10.8 g/dL (13.0-18.0); Mean Corp Hgb Conc. 35.8 g/dL (33.0-37.0); Mean Corpuscular Hgb 31.1 pg (27.0-31.0); Mean Platelet Volume 10.1 fL (7.4-10.4); Nucleated Red Blood Cells % 0 % (-); Platelet Count 201 10^3/uL (130-400); Red Blood Cell Count 3.47 10^6/uL (4.70-6.10); Red Cell Dist. Width 13.5 % (11.5-14.5)
[2024-08-03] MEDS: NSS 1000 IV ×2 (11:54→22:58)
[2024-08-03 12:08] LABS: ALT (SGPT) 10 U/L (0-50); AST (SGOT) 15 U/L (17-59); Albumin 3.5 g/dl (3.5-5.0); Alkaline Phosphatase 52 U/L (38-126); Calcium 9.1 mg/dl (8.4-10.2); Carbon Dioxide 22 mmol/L (22-30); Chloride 104 mmol/L (98-107); Estimated Creatinine Clearance 34 ml/min; Glucose 86 mg/dl (70-99); Sodium 138 mmol/L (135-145); Total Protein 6.1 g/dl (6.3-8.2); eGFR 38.53
[2024-08-03 12:19] LABS: Urine Albumin Negative (Neg - Trace); Urine Bilirubin Negative (Negative); Urine Character Clear (Clear); Urine Color Yellow; Urine Glucose Negative (Negative); Urine Ketone Negative (Negative); Urine Leukocyte Negative (Negative); Urine Nitrite Negative (Negative); Urine Occult Blood 3+ (Negative); Urine Urobilinogen 1+ (Neg - 1+)
[2024-08-03 12:22] LABS: Blood Urea Nitrogen 35 mg/dl (9-20); Total Bilirubin 1.5 mg/dl (0.2-1.3)
[2024-08-03 12:28] LABS: COVID-19 Antigen Negative (Negative)
[2024-08-03 12:45] LABS: Urine Bacteria Few (Negative); Urine Squamous Cell 0-2 /LPF (Few); Urine White Cell 0-2 /HPF (0-5)
[2024-08-03] MEDS: MAXIPIME 2000 MG IV (14:41)
[2024-08-03] MEDS: VANCOCIN 200 IV (14:41)
--- NOTE | 2024-08-03 15:55 | HPS.HSE ---
Addendum entered and electronically signed by Elliot Chaves MD 08/03/24 18:23:
88 male history of lipidemia metastatic bladder cancer with mets to the brain presenting with generalized weakness worsening confusion that sounds like it has been ongoing for past couple of days but this morning was unable to get to the bathroom
was confused and with himself in his back.
Imaging
IMPRESSION:
Status post right temporal craniotomy. Adjacent focal area of decreased density, which is likely encephalomalacia.
Focal area of decreased density involving the anterior aspect of the superior sunny, and possibly extending into the adjacent midbrain. This is larger than on previous examinations of March 04, 2024. This could represent a focal area of subacute
infarction, versus a metastatic lesion. As warranted, consider further imaging evaluation with MRI of the brain without and with contrast, if there are no contraindications.
Focal area of decreased density involving the head of the left caudate nucleus extending into the adjacent white matter. There appears to be slight interval decrease in mass effect in this region, suggesting positive response to therapy. Residual
neoplasia and/or adjacent edema are possible in this region.
Focal area of decreased density within the white matter near the left frontoparietal junction, which is likely edema associated with metastatic lesion seen on prior MRI of the brain of Mar 04 2024.
Interval resolution of left subdural collection.
Physical Exam
NAD, snoring
Scleral anicteric, senile arcus
Dry mucous membranes
No JVD
CTA bilateral
Normal S1-S2 no murmurs
Soft nontender nondistended bowel sounds active
No peripheral pitting edema
Moves extremities spontaneously
AAOx3, slow, garbbled speech
Touch chin to chest iwthout pain
Assessment and Plan
Toxic metabolic encephalopathy vs CVA vs progressive brain mets vs dehydration
-Check b12, folate, hiv, rpr, tsh
-Check MRI
-Monitor on tele
-Blood culture
-UA without evidence of infection
-IVF
-IVAtb
Fever board ddx, potentially infectious but no foci noted as of yet, related to malignancy
-WIll monitor
-Provide antipyretics
Secondary AI
-continue home hydrocort
CKD stage IV, stable
-Monitor UOP
-Avoid Nephrotoxins and hypotension
Normocytic anemia
-Without evidence of blood loss
-Oupt follow up
Metastatic bladder cancer
-Folows at [facility] with Dr. Lissy Ochoa
Hx of extensive DVT
-No on AC
Original Note:
Family Physician
-
Family Physician: Jerrod Ashton
Chief Complaint
-
Fever, weakness, confusion
History of Present Illness
The patient is an 88-year-old male with a history of hyperlipidemia, metastatic bladder cancer with metastases to the brain who presented to the emergency department via EMS for evaluation of generalized weakness and worsening confusion. He was in
his normal state of health the day before his presentation to the emergency department but was noted to be more somnolent than usual at 10 PM that evening. His family spoke with him and he conversed with them at that time. He was helped to bed and
went to sleep. The following morning around 9:00am he was found to have wet himself in bed. When his family tried to talk to him he was disoriented but was able to talk. He was able to answer simple yes/no questions but was very confused. He had
weakness and was unable to get to the bathroom and had to stop and lay on the floor. His family called EMS and he was promptly brought to the emergency department. During physical exam and interview the patient was somnolent and did not answer
many questions. He nodded and was able to confirm that he knew that he was in the emergency department at [facility]. He was admitted to [facility] for encephalopathy secondary to unknown causes.
Medical History
Past Medical History
Past Medical History: Reports Asthma, Cancer (Bladder cancer, brain and spine), Hypercholesterolemia and Other (DVT of the right leg)
Past Surgical History: Reports Orthopedic (Right Achilles tear repair), Tonsilectomy, Urological and Other (Hernia and cataracts)
Social History
Tobacco: Non-smoker
Alcohol: Occasional
Drug: None
Personal:
Living: With Family
Employment: Retired
Family History
Family History: Not pertinent
Allergies / Home Medications
Allergies reflects when Allergies were last updated in [facility].
Home Medications with original date entered in [facility]
Allergy/Medication List:
Allergies
Allergy/AdvReac Type Severity Reaction Status Date / Time
pollen extracts Allergy 'mucous Verified 08/03/24 11:00
thickens'
Home Medications
acetaminophen 650 mg tablet,extended release 650 mg PO TID 08/03/24
calcium carbonate 1,000 mg PO DAILY 08/03/24
cholecalciferol (vitamin D3) 25 mcg (1,000 unit) tablet (Vitamin D3) 25 mcg PO DAILY 08/03/24
hydrocortisone 10 mg tablet 10 mg PO DAILY 08/03/24
hydrocortisone 5 mg tablet 5 mg PO BID@1400,2000 08/03/24
morphine 15 mg tablet,extended release 15 mg PO HS 08/03/24
oxycodone-acetaminophen 5 mg-325 mg tablet (Percocet) 1 tab PO DAILYPRN PRN break through pain 08/03/24
Review of Systems
-
History Source: Family
Constitutional: Reports See HPI
Physical Exam
Vital Signs
Vital Signs
Temp Pulse Resp BP Pulse Ox
100.2 F 60 18 113/62 97
08/03/24 13:55 08/03/24 15:30 08/03/24 15:30 08/03/24 15:00 08/03/24 15:41
Physical Exam
General: Well Developed and Well Nourished
HEENT: NormoCephalic, Anicteric, Moist mucous membranes and Atraumatic
Respiratory: Clear
Cardiac: S1/S2, Regular Rhythm and Murmur (Systolic murmur heard over the aorta)
Breast: Deferred by me
GI: Soft, Non Tender, Non Distended and Normal Bowel Sounds
Rectal: Deferred by Provider
Genito-urinary: Deferred by me
Musculoskeletal: No Clubbing, No Cyanosis and No Edema
Skin: Warm, Dry and Rash
Neuro: Awake and Oriented
Psych: Calm
Laboratory Results
-
08/03/24 11:39
08/03/24 11:39
Laboratory Results
Lactic Acid 1.0 mmol/L (0.7-2.0) 08/03/24 11:39
Total Bilirubin 1.5 mg/dl (0.2-1.3) H 08/03/24 11:39
AST 15 U/L (17-59) L 08/03/24 11:39
ALT 10 U/L (0-50) 08/03/24 11:39
Alkaline Phosphatase 52 U/L (38-126) 08/03/24 11:39
Impression/Plan
-
Impression/Plan:
Encephalopathy/Altered Mental Status:
Patient is febrile with a temperature of 102.3 in the emergency department
Most labs within normal limits on admission except for an elevated BUN of 35 and creatinine of 1.7
CT scan of the head conducted on 08/03/2024 showed possible encephalomalacia and other changes related to metastatic lesions -recommended a follow-up MRI
Follow-up MRI ordered
Negative for COVID and flu
Patient was given IV cefepime and vancomycin in the emergency department
Awaiting blood and urine culture
Neurochecks as per unit guidelines
Adrenal insufficiency:
Continue home hydrocortisone regimen
FULL CODE STATUS
DVT prophylaxis: Sequential compression devices
Data:
-Chest x-ray conducted on 08/03/2024:
Lungs: The lungs are clear. No pleural effusion or pneumothorax. There is a right Port-A-Cath present. The tip is in the region of the junction of the superior vena cava and right atrium.
Heart: The heart is not enlarged. There is moderate arch calcification.
Osseous structures: There is mild anterior osteophyte formation of the lower thoracic spine consistent with degenerative disease..
-Head CT conducted on 08/03/2024:
Status post right temporal craniotomy. Adjacent focal area of decreased density, which is likely encephalomalacia.
Focal area of decreased density involving the anterior aspect of the superior sunny, and possibly extending into the adjacent midbrain. This is larger than on previous examinations of March 04, 2024. This could represent a focal area of subacute
infarction, versus a metastatic lesion. As warranted, consider further imaging evaluation with MRI of the brain without and with contrast, if there are no contraindications.
Focal area of decreased density involving the head of the left caudate nucleus extending into the adjacent white matter. There appears to be slight interval decrease in mass effect in this region, suggesting positive response to therapy. Residual
neoplasia and/or adjacent edema are possible in this region.
Focal area of decreased density within the white matter near the left frontoparietal junction, which is likely edema associated with metastatic lesion seen on prior MRI of the brain of Mar 04 2024.
Interval resolution of left subdural collection.
--- NOTE | 2024-08-03 17:55 | PTCARENOTE ---
Admitted to 3349, IMU monitors placed- SB 50s BP 114/60, 97% on RAIR RR 20. Lethargic, sleepy but will answer most questions appropriately. Admission completed at the bedside. Skin intact, dry and warm. Halitosis noted. LCTA, HRR Condom cath
attempted failed short 25 now with #30- will monitor. Refusing po intake - diet clarified with Dr. Joseph Resident,. WIll encourage po meds. SCDs intact. Call easton at his side demonstrated use. Family not here.
[2024-08-03] MEDS: TYLENOL 650 MG PO ×2 (18:10→22:58)
[2024-08-03] MEDS: CORTEF 10 MG PO (18:10)
[2024-08-03] MEDS: CORTEF 5 MG PO (20:57)
[2024-08-03] MEDS: MS CONTIN (EXTENDED RELEASE) 15 MG PO (21:01)
[2024-08-04] VITALS (11 sets, daily range): BP systolic 104–138; BP diastolic 60–76; PULSE 59; O2SAT 97; BMI 23.4
--- NOTE | 2024-08-04 03:35 | PTCARENOTE ---
Pt received from previous shift in bed. AAOx3, drowsy/lethargic, arousable to voice. Telemetry = Sbrady. Full physical assessment documented (refer to worklist). CC placed previously fell off, #30 CC replaced, incontinence care provided. Knee
high SCDs in place. TARIFF SUPERVISOR covering house contacted about poor PO intake --> electronic orders received for IVF (refer to MAR). NSS infusing via RSubQ port without complication. Bed alarm active, call easton within reach.
[2024-08-04 05:34] LABS: Hematocrit 31.3 % (39.0-52.0); Hemoglobin 10.6 g/dL (13.0-18.0); Mean Corp Hgb Conc. 33.9 g/dL (33.0-37.0); Mean Corpuscular Hgb 30.3 pg (27.0-31.0); Mean Corpuscular Volume 89.4 fL (80.0-94.0); Mean Platelet Volume 10.4 fL (7.4-10.4); Platelet Count 203 10^3/uL (130-400); Red Cell Dist. Width 13.5 % (11.5-14.5); White Blood Cell Count 5.2 10^3/uL (4.8-10.8)
[2024-08-04 05:58] LABS: ALT (SGPT) 12 U/L (0-50); AST (SGOT) 18 U/L (17-59); Albumin 3.3 g/dl (3.5-5.0); Alkaline Phosphatase 52 U/L (38-126); Blood Urea Nitrogen 33 mg/dl (9-20); Calcium 8.9 mg/dl (8.4-10.2); Carbon Dioxide 20 mmol/L (22-30); Chloride 106 mmol/L (98-107); Estimated Creatinine Clearance 38 ml/min; Glucose 102 mg/dl (70-99); Magnesium 1.9 mg/dl (1.6-2.3); Phosphorus 5.1 mg/dl (2.5-4.5); Potassium 4.7 mmol/L (3.5-5.1); Sodium 138 mmol/L (135-145); Total Bilirubin 1.4 mg/dl (0.2-1.3); Total Protein 5.8 g/dl (6.3-8.2); eGFR 44.78
[2024-08-04] MEDS: OSCAL CAL 500 1000 MG PO (08:22)
[2024-08-04] MEDS: CORTEF 10 MG PO (08:22)
[2024-08-04] MEDS: VITAMIN D3 (cholecalciferol) 25 MCG PO (08:22)
[2024-08-04] MEDS: TYLENOL 650 MG PO ×3 (08:23→23:23)
--- NOTE | 2024-08-04 12:47 | W.PN.HOSP.TC ---
Addendum entered and electronically signed by Elliot Chaves MD 08/04/24 14:27:
overall menetal status improving, sitting in bedside chair
will have pt/ot see him.
Assessment and Plan
Toxic metabolic encephalopathy vs CVA vs progressive brain mets vs dehydration
-Check b12, folate, hiv, rpr, tsh
-Check MRI
-Monitor on tele
-Blood culture
-UA without evidence of infection
-IVF
-IVAtb
Fever board ddx, potentially infectious but no foci noted as of yet, related to malignancy
-WIll monitor
-Provide antipyretics
Secondary AI
-continue home hydrocort
CKD stage IV, stable
-Monitor UOP
-Avoid Nephrotoxins and hypotension
Normocytic anemia
-Without evidence of blood loss
-Oupt follow up
Metastatic bladder cancer
-Folows at [facility] with Dr. Lissy Ochoa
Hx of extensive DVT
-No on AC
Original Note:
Today's Communication/Plan
-
Awaiting MRI results. Patient has a history of DVTs. Reached out to primary care provider's office for further details as to why patient's anticoagulant has been discontinued, or if the patient has been switched to a different anticoagulant.
Hopefully they will contact us with further details.
Assessment / Plan
Assessment / Plan
Impression/Plan:
Encephalopathy/Altered Mental Status:
Patient was febrile with a temperature of 102.3 in the emergency department -no longer febrile
Most labs within normal limits on admission except for an elevated BUN of 35 and creatinine of 1.7
CT scan of the head conducted on 08/03/2024 showed possible encephalomalacia and other changes related to metastatic lesions -recommended a follow-up MRI
Follow-up MRI ordered
Negative for COVID and flu
Patient was given IV cefepime and vancomycin in the emergency department
Urine analysis without evidence of infection
Awaiting blood culture results
Monitoring on telemetry
Neurochecks as per unit guidelines
IV fluid support
-Fever
broad differential that could be potentially infectious but no foci noted as of yet
Possibly related to malignancy
Provide antipyretics
Adrenal insufficiency:
Continue home hydrocortisone regimen
-CKD stage IV: Stable
Monitor I/O's
Avoid nephrotoxins and hypotension
-Normocytic anemia
No evidence of blood loss
Should be followed up outpatient
-Metastatic bladder cancer:
Follows at [facility] with Dr. Lissy Ochoa
-History of extensive DVTs:
Currently not on an anticoagulant
Reached out to primary care provider's office for further details as to why patient's anticoagulant has been discontinued, or if the patient has been switched to a different anticoagulant
FULL CODE STATUS
DVT prophylaxis: Sequential compression devices
Data:
-Chest x-ray conducted on 08/03/2024:
Lungs: The lungs are clear. No pleural effusion or pneumothorax. There is a right Port-A-Cath present. The tip is in the region of the junction of the superior vena cava and right atrium.
Heart: The heart is not enlarged. There is moderate arch calcification.
Osseous structures: There is mild anterior osteophyte formation of the lower thoracic spine consistent with degenerative disease.
-Head CT conducted on 08/03/2024:
Status post right temporal craniotomy. Adjacent focal area of decreased density, which is likely encephalomalacia.
Focal area of decreased density involving the anterior aspect of the superior sunny, and possibly extending into the adjacent midbrain. This is larger than on previous examinations of March 04, 2024. This could represent a focal area of subacute
infarction, versus a metastatic lesion. As warranted, consider further imaging evaluation with MRI of the brain without and with contrast, if there are no contraindications.
Focal area of decreased density involving the head of the left caudate nucleus extending into the adjacent white matter. There appears to be slight interval decrease in mass effect in this region, suggesting positive response to therapy. Residual
neoplasia and/or adjacent edema are possible in this region.
Focal area of decreased density within the white matter near the left frontoparietal junction, which is likely edema associated with metastatic lesion seen on prior MRI of the brain of Mar 04 2024.
Interval resolution of left subdural collection.
Anticipated Discharge: 24 - 48 hours
Subjective/Interval History
-
Date of Service: August 04, 2024
Met with the patient at the bedside. He states that he is doing much better and was seen sitting in the chair out of bed. He ate his breakfast and was conversant. He is unsure about past events involving his confusion and it did not seem certain
whether he was confused at all in the past or not. He states that he does not feel like he has a fever or chills.
Objective Data
-
Labs:
Laboratory Results
08/04/24
04:28
WBC 5.2
Hgb 10.6 L
Hct 31.3 L
Plt Count 203
Sodium 138
Potassium 4.7
Chloride 106
Carbon Dioxide 20 L
BUN 33 H
Creatinine 1.5 H
Glucose 102 H
Calcium 8.9
Total Bilirubin 1.4 H
AST 18
ALT 12
Alkaline Phosphatase 52
Vital Signs:
Vital Signs
Temp Pulse Resp BP Pulse Ox
97.9 F 76 21 132/69 97
08/04/24 11:23 08/04/24 10:00 08/04/24 10:00 08/04/24 08:00 08/04/24 08:00
I&O
08/03/24 08/04/24 08/05/24
06:59 06:59 06:59
Intake Total 510 / 510
Output Total 200 / 200
Balance 310 / 310
Review of Systems
-
History Source: Patient
All other systems: Reviewed and negative
Constitutional: Reports No Symptoms
Respiratory: Reports No Symptoms
Cardiac: Reports No Symptoms
Abdomen/GI: Reports No Symptoms
Breast: Reports No Symptoms
Genitourinary: Reports No Symptoms
Musculoskeletal: Reports No Symptoms
Skin: Reports No Symptoms
Neuro: Reports No Symptoms
Endocrine: Reports No Symptoms
Hematologic / Lymphatic: Reports No Symptoms
Physical Exam
-
General: Well Developed, Well Nourished, No Apparent Distress and Comfortable
HEENT: Normocephalic, Atraumatic and Moist Mucous Membranes
Respiratory: Clear to Auscultation
Cardiac: Regular Rhythm and Bradycardic
Breast: Deferred by me
GI: Soft, Nontender, Nondistended and Normal Bowel Sounds
Rectal: Deferred by Provider
Genito-urinary: Deferred by me
Musculoskeletal: No Clubbing, No Cyanosis and No Edema
Skin: Warm and Dry
Neuro: Awake, Alert, Oriented and AO x 3
Psych: Calm
[2024-08-04] MEDS: CORTEF 5 MG PO ×2 (13:10→20:56)
[2024-08-04] MEDS: NSS 1000 IV (13:19)
--- NOTE | 2024-08-04 14:56 | CON.ID ---
Consultation
-
Date/Time Consultation Requested: August 03, 2024 181
Date/Time Consultation Performed: August 04, 2024 1500
Requesting Provider: Dr. Opal Enciso
Performing Provider: Dr. Marlyn Conroy
Reason for Consultation: Fever, disseminated cancer
Chief Complaint / Past History
Chief Complaint
Confusion
History of Present Illness
History obtained from patient's daughter and from patient. He is a 88-year-old male stage IV bladder cancer with mets to spine and brain, no longer on treatment who presented to the hospital yesterday due to confusion. Per daughter patient had
acute onset of decreased mental status, very confused, and weak. In the ER temperature was 102.3. White count normal. He was given 1 dose of vancomycin and cefepime in the ER. Chest x-ray negative. Today patient's mental status has
significantly improved. Patient denies headache, cough, diarrhea, urinary symptoms.
Past History
Additional Past Medical History:
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
Asthma
CKD IV
Right lower extremity DVT
TURBT
Right temporal craniotomy, brain met resection.
Hernia repair
Right Achilles tear repair
Allergy History:
pollen extracts Allergy (Verified 08/03/24 11:00)
'mucous thickens'
Medications Reviewed: Yes
Current Antibiotics:
none
Social History
Tobacco: Non-Smoker
Alcohol: None
Drug: None
Personal:
Family History
Family History: Not Pertinent
Review of Systems
Review of Systems
General: Negative Fever, Chills or Change in Appetite
HEENT: Negative Sinus Problems, Headache or Pharyngitis
Cardiovascular: Negative Chest Pain or Dyspnea
Respiratory: Negative Dyspnea or Cough
Gasteroenterology: Negative Nausea, Vomiting or Diarrhea
Genital / Urological: Negative Dysuria or Flank Pain
Neurological: Negative Dizziness
All systems: All other systems were reviewed and were negative
Vital Signs
Temp Pulse Resp BP Pulse Ox
97.9 F 76 21 132/69 97
08/04/24 11:23 08/04/24 10:00 08/04/24 10:00 08/04/24 08:00 08/04/24 08:00
Selected Entries
08/03/24
11:00
Temp 102.3 F H
Physical Exam
Physical Exam
Constitutional: No Acute Distress
Head: Other (No frontal or maxillary sinus tenderness.)
Eyes: No Conjunctival Hemorrhage and Sclera Anicteric
Cardiovascular: Regular Rate and S1/S2
Pulmonary: Clear
Gastrointestinal: Soft, Non Tender, Non Distended and Normal Bowel Sounds
Genito-Urinary: Negative CVA Tenderness
Extremities: Negative Edema
Neurological: Awake and Alert
Lines: Port (Right CW port no erythema.)
Lab / Diagnostic Study Results
08/04/24 04:28
08/04/24 04:28
Abs Immat Gran (auto) 0.0 10^3/uL (0-0.05) 08/03/24 11:39
Absolute Neuts (auto) 3.7 10^3/uL (1.4-6.5) 08/03/24 11:39
Absolute Lymphs (auto) 1.3 10^3/uL (1.2-3.4) 08/03/24 11:39
Absolute Monos (auto) 0.9 10^3/uL (0.1-0.6) H 08/03/24 11:39
Absolute Basos (auto) 0.0 10^3/uL (0-0.2) 08/03/24 11:39
Immature Gran % 0.5 % (0-0.5) 08/03/24 11:39
Neutrophils % 61.4 % (42.2-75.2) 08/03/24 11:39
Lymphocytes % 22.2 % (20.5-51.1) 08/03/24 11:39
Monocytes % 14.6 % (1.7-9.3) H 08/03/24 11:39
Eosinophils % 1.0 % (0-6) 08/03/24 11:39
Basophils % 0.3 % (0-2) 08/03/24 11:39
Lactic Acid 1.0 mmol/L (0.7-2.0) 08/03/24 11:39
Ur Squamous Epith Cells 0-2 /LPF (Few) 08/03/24 12:00
Microbiology Results
Micro:
08/03/24 11:39 Blood Culture - Preliminary
Blood/Venous No Growth in 24 hours- Final report to follow
08/03/24 12:00 Urine Culture - Final
Urine NO GROWTH
08/03/24 12:00 Influenza Types A & B (HOWARD) - Final
Nasal Swab Negative for Influenza A & B, NAAT
Negative results must be combined with clinical observations
and patient history.
Nucleic Acid Amplification test (NAAT)performed on the
[employer] platform.
08/03/24 CXR: No acute disease of the chest.
08/03/[address]: Focal area of decreased density involving the anterior aspect of the superior sunny, and possibly extending into the adjacent midbrain. This is larger than on previous examinations of March 04, 2024. This could represent a focal area of
subacute infarction, versus a metastatic lesion. As warranted, consider further imaging evaluation with MRI of the brain without and with contrast, if there are no contraindications.
Assessment / Plan
# Fever x 1
- no infectious etiology identified with neg UA, blood cx, CXR.
- Suspect tumor fever from stage IV bladder CA.
- Observe off abx.
# Conditions [employer] OPER[employer]
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
Asthma
CKD IV
Right lower extremity DVT
TURBT
Right temporal craniotomy, brain met resection.
Hernia repair
Right Achilles tear repair
--- NOTE | 2024-08-04 15:57 | CM ---
Patient with Hx Metastatic bladder cancer with Dx TME. MRI pending. PT/OT Evals pending.
Met with patient, Nany and grand-daughter Park;
the patient resides with his in a 2 story house with first floor bedroom/bath, with 2 BRIELLE.
He has been independent with ADLs, and ambulates by holding onto furniture, without using any assistive devices.
Denies any falls.
DME - [facility]W, [facility]. w/c
Current with [facility] for SN, stopped PT/OT a few months ago.
Prior [facility]
Prior [facility]
PCP - Jerrod Ashton
Pharmacy - [facility] [address], [place]
Patient & family agree to having [facility] again at d/c.
Plan follow up after seen by PT/OT.
Plan probable home with resumption [facility].
--- NOTE | 2024-08-04 19:00 | PTCARENOTE ---
unable to verify VS captured prior to 190
--- NOTE | 2024-08-04 19:49 | PTCARENOTE ---
Pt found with deaccessed sc port today and pulled all monitor leads off. VAT replaced sc port and medsitter set up in room. Tele set back up as well. SB 50s-60s. LCTA. 97/ RA. Continent B/B has breif on. Family here all afternoon .
Ambulated wit PT/OT, like s to stand at the bedside.
[2024-08-04] MEDS: MS CONTIN (EXTENDED RELEASE) 15 MG PO (20:56)
[2024-08-05] VITALS (8 sets, daily range): BP systolic 95–135; BP diastolic 50–77
--- NOTE | 2024-08-05 01:26 | PTCARENOTE ---
Pt received OOB --> chair w/family present. AAOx3, slightly forgetful. Situational awareness, waiting for MRI. Telemetry = Sbrady. Full physical assessment documented (refer to worklist). Pt transported to MRI via around 0. Full CHG bath
completed upon return from MRI. NSS infusing at 60 mL/hr via RSubQ port. Bed alarm active for safety. Call easton within reach. Medsitter in place.
[2024-08-05 05:22] LABS: Hemoglobin 10.1 g/dL (13.0-18.0); Mean Corp Hgb Conc. 34.8 g/dL (33.0-37.0); Mean Corpuscular Hgb 31.6 pg (27.0-31.0); Mean Corpuscular Volume 90.6 fL (80.0-94.0); Platelet Count 181 10^3/uL (130-400); Red Cell Dist. Width 13.2 % (11.5-14.5)
[2024-08-05 06:31] LABS: ALT (SGPT) < 10 U/L (0-50); AST (SGOT) 15 U/L (17-59); Alkaline Phosphatase 46 U/L (38-126); Blood Urea Nitrogen 35 mg/dl (9-20); Calcium 8.9 mg/dl (8.4-10.2); Carbon Dioxide 21 mmol/L (22-30); Chloride 108 mmol/L (98-107); Estimated Creatinine Clearance 44 ml/min; Glucose 115 mg/dl (70-99); Potassium 4.2 mmol/L (3.5-5.1); Sodium 138 mmol/L (135-145); Total Bilirubin 0.5 mg/dl (0.2-1.3); Total Protein 5.5 g/dl (6.3-8.2); eGFR 53.17
--- NOTE | 2024-08-05 07:21 | W.PN.HOSP.TC ---
Addendum entered and electronically signed by Elliot Chaves MD 08/05/24 15:42:
I spoke with his son medical power of immigration attorney. Dr. Jose Mcnair who is a emergency medicine physician at [facility]. Full update provided.
-He is agreeable that his father can be discharged at this point as he says he has been following along through the patient portal.
-He understands that and agrees that he should follow-up with his radiation oncologist at [facility] as there has been increase in size as of these metastatic brain lesions.
-- He tells me that his father had stereotactic radiation in the past unfortunately this is not offered at [facility].
-I also informed him that he should see neurosurgery and thankfully there is no evidence of vasogenic edema around these lesions.
Informed them that suspect fever was tumor related rather than infectious. Infectious diseases signed off.
Will plan to discharge home at this point.More than 30 minutes spent in discharge including
Final examination of the patient
Summarizing hospital stay
Instructions for continuing care to all relevant caregivers
Preparation of discharge records, prescriptions, and referral forms
Total time spent (in minutes): 33mins
Original Note:
Today's Communication/Plan
-
MRI conducted did not show any acute changes and showed enlargement of metastatic lesion seen prior. Patient's fever was likely secondary due to metastatic tumor. The patient would be best followed in an outpatient setting by radiation oncology
and neurosurgery. Will move forward with discharge planning.
Assessment / Plan
Assessment / Plan
Impression/Plan:
Encephalopathy/Altered Mental Status secondary to Metastatic tumor to the brain:
Patient was febrile with a temperature of 102.3 in the emergency department -no longer febrile
Most labs within normal limits on admission except for an elevated BUN of 35 and creatinine of 1.7
CT scan of the head conducted on 08/03/2024 showed possible encephalomalacia and other changes related to metastatic lesions -recommended a follow-up MRI
Follow-up MRI showed no acute changes. There was signs of increasing size of metastatic lesion that were seen in the brain prior with a new lesion detected. Details of the MRI study are included in the data portion of this note.
Negative for COVID and flu
Patient was given IV cefepime and vancomycin in the emergency department
Urine analysis without evidence of infection
Awaiting blood culture results
Monitoring on telemetry
Neurochecks as per unit guidelines
IV fluid support
The patient appears to be at his baseline and would like to be discharged home today.
Patient should be followed up in the outpatient setting by radiation oncology and neurosurgery.
-Fever
broad differential that could be potentially infectious but no foci noted as of yet
Possibly related to malignancy
Provide antipyretics
Adrenal insufficiency:
Continue home hydrocortisone regimen
-CKD stage IV: Stable
Monitor I/O's
Avoid nephrotoxins and hypotension
-Normocytic anemia
No evidence of blood loss
Should be followed up outpatient
-Metastatic bladder cancer:
Follows at [facility] with Dr. Lissy Ochoa
-History of extensive DVTs:
Currently not on an anticoagulant
Reached out to primary care provider's office for further details as to why patient's anticoagulant has been discontinued, or if the patient has been switched to a different anticoagulant
FULL CODE STATUS
DVT prophylaxis: Sequential compression devices
Data:
-Brain MRI conducted on 08/04/2024:
MRI of the brain is performed without contrast on 3 Di field strength machine.
The patient is status post right temporal craniotomy. There is focal volume loss and signal abnormality in the lateral right temporal lobe and extending to the anterior occipital lobe. Small 1.5 cm central focus of fluid signal intensity compatible
with focal encephalomalacia. Adjacent increased FLAIR signal, which could represent postsurgical changes and/or any previous radiation therapy. Without contrast, it is difficult to evaluate for a component of residual or recurrent neoplasia in this
region.
In the midline anterior superior sunny, there is a rounded focus of decreased T1-weighted signal which measures 1.8 cm transverse by 1.1 cm AP by 1.4 cm craniocaudal. This has increased T2-weighted signal, intermediate FLAIR signal with a
surrounding rim of slightly increased FLAIR signal. This shows decreased signal intensity on diffusion-weighted images and slightly increased signal intensity on ADC images. This finding is larger than previous examination of March 04, 2024. This most
likely represents an enlarging metastatic lesion.
Additionally, within the right side of the inferior medulla, there is a focal area of decreased T1 and increased T2 and FLAIR signal, and appears new since prior examination. This is best seen on image 7 of series 401. Of note, this has slightly
increased diffusion-weighted signal with no significant alteration on ADC images. This is also likely a metastatic lesion. A focus of infarction is not completely excluded by imaging alone, although generally would expect to have associated
decreased ADC signal.
Within the anterior and inferior aspect of the left cerebellar hemisphere, there is a small focal area of increased diffusion-weighted signal and increased FLAIR signal, suspicious for metastatic disease. This however is not definitive,
particularly with no contrast enhancement. This could represent a small focus of infarction, and also could represent some artifact at the junction of the cerebellum and the base of the calvarium.
In the region of the head of the left caudate nucleus, and also extending into the region of the anterior limb of the left internal capsule, there is a rounded focus of decreased T1-weighted signal and increased T2-weighted signal, measuring 1.1 cm
AP by 0.8 cm transverse by 1.2 cm craniocaudal. Surrounding heterogeneous increased FLAIR signal this likely represents a metastatic lesion. The central ovoid component of this lesion has slightly decreased since previous examination. The adjacent
increased FLAIR signal surrounding this lesion has increased, and could represent surrounding change from treatment for cytotoxic edema. Without intravenous contrast, it is difficult to evaluate for a component of active neoplasia in this region.
There is an approximately 1.5 cm focus of increased FLAIR and T2-weighted signal in the periventricular white matter at the left frontoparietal junction, lateral to the posterior body of the left lateral ventricle, seen on image 21 of series 501.
This appears slightly larger than on previous examination, previously corresponding to an enhancing metastatic lesion.
Moderate diffuse atrophy is present.
Moderate T2 and FLAIR white matter hyperintensities, predominantly periventricular. These are commonly seen with aging and usually attributed to small vessel ischemic disease.
There is no significant midline shift. The basilar cisterns appear maintained. There is no evidence for obstructive hydrocephalus.
There is no evidence for Chiari malformation.
Evidence of previous bilateral cataract surgery. Mild patchy mucosal thickening of the ethmoid sinuses. The mastoid air cells appear clear.
-Chest x-ray conducted on 08/03/2024:
Lungs: The lungs are clear. No pleural effusion or pneumothorax. There is a right Port-A-Cath present. The tip is in the region of the junction of the superior vena cava and right atrium.
Heart: The heart is not enlarged. There is moderate arch calcification.
Osseous structures: There is mild anterior osteophyte formation of the lower thoracic spine consistent with degenerative disease.
-Head CT conducted on 08/03/2024:
Status post right temporal craniotomy. Adjacent focal area of decreased density, which is likely encephalomalacia.
Focal area of decreased density involving the anterior aspect of the superior sunny, and possibly extending into the adjacent midbrain. This is larger than on previous examinations of March 04, 2024. This could represent a focal area of subacute
infarction, versus a metastatic lesion. As warranted, consider further imaging evaluation with MRI of the brain without and with contrast, if there are no contraindications.
Focal area of decreased density involving the head of the left caudate nucleus extending into the adjacent white matter. There appears to be slight interval decrease in mass effect in this region, suggesting positive response to therapy. Residual
neoplasia and/or adjacent edema are possible in this region.
Focal area of decreased density within the white matter near the left frontoparietal junction, which is likely edema associated with metastatic lesion seen on prior MRI of the brain of Mar 04 2024.
Interval resolution of left subdural collection.
Anticipated Discharge: Today
Subjective/Interval History
-
Date of Service: August 05, 2024
Objective Data
-
Labs:
Laboratory Results
08/05/24
04:46
WBC 6.0
Hgb 10.1 L
Hct 29.0 L
Plt Count 181
Sodium 138
Potassium 4.2
Chloride 108 H
Carbon Dioxide 21 L
BUN 35 H
Creatinine 1.3
Glucose 115 H
Calcium 8.9
Total Bilirubin 0.5
AST 15 L
ALT < 10
Alkaline Phosphatase 46
Vital Signs:
Vital Signs
Temp Pulse Resp BP Pulse Ox
97.7 F 43 16 95/50 98
08/05/24 04:58 08/05/24 06:00 08/05/24 06:00 08/05/24 06:00 08/05/24 06:00
I&O
08/04/24 08/05/24 08/06/24
06:59 06:59 06:59
Intake Total 510 / 510 960 / 960
Output Total 200 / 200 200 / 200
Balance 310 / 310 760 / 760
--- NOTE | 2024-08-05 08:54 | PTCARENOTE ---
Pt was sitting on edge of bed attempting to get up to BR, Pt very confused at that time. Now sleeping med sitter continues
[2024-08-05] MEDS: CORTEF 10 MG PO (09:02)
[2024-08-05] MEDS: VITAMIN D3 (cholecalciferol) 25 MCG PO (09:02)
[2024-08-05] MEDS: TYLENOL 650 MG PO (09:02)
[2024-08-05] MEDS: OSCAL CAL 500 1000 MG PO (09:03)
--- NOTE | 2024-08-05 09:20 | PTCARENOTE ---
Hari Garcia called re how to get ion touch with for an update. will TT Dr Chaves
--- NOTE | 2024-08-05 10:39 | W.PN.ID1 ---
Date of Service
Date of Service: August 05, 2024
Today's Communication
ID will sign off.
Assessment / Plan
# Fever x 1, resolved
- no infectious etiology identified with neg UA, blood cx, CXR.
- Suspect tumor fever from stage IV bladder CA.
- Continue to observe off abx.
ID will sign off.
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
Asthma
CKD IV
Right lower extremity DVT
TURBT
Right temporal craniotomy, brain met resection.
Hernia repair
Right Achilles tear repair
Chief Complaint
-: Fever
Subjective / Review of Systems
Feel well.
Vital Signs / Physical Exam
Vital Signs
Vital Signs
Temp Pulse Resp BP Pulse Ox
97.4 F 54 12 133/77 98
08/05/24 07:30 08/05/24 08:00 08/05/24 08:00 08/05/24 08:00 08/05/24 06:00
Physical Exam
Constitutional: No Acute Distress and Comfortable
Pulmonary: Clear
Gastrointestinal: Soft, Non Tender and Non Distended
Extremities: Negative Edema
Neurological: Awake and Alert
Lines: Port (RCW intact)
Objective Data
Lab Data
Lab Results
08/05/24 04:46
08/05/24 04:46
Estimated Creat Clear 44 ml/min 08/05/24 04:46
Lactic Acid 1.0 mmol/L (0.7-2.0) 08/03/24 11:39
Total Bilirubin 0.5 mg/dl (0.2-1.3) 08/05/24 04:46
AST 15 U/L (17-59) L 08/05/24 04:46
ALT < 10 U/L (0-50) 08/05/24 04:46
Alkaline Phosphatase 46 U/L (38-126) 08/05/24 04:46
Most recent labs reviewed.
Micro Results:
08/03/24 11:39 Blood Culture - Preliminary
Blood/Venous No Growth in 24 hours- Final report to follow
08/03/24 12:00 Urine Culture - Final
Urine NO GROWTH
08/03/24 12:00 Influenza Types A & B ([facility]) - Final
Nasal Swab Negative for Influenza A & B, NAAT
Negative results must be combined with clinical observations
and patient history.
Nucleic Acid Amplification test (NAAT)performed on the
[employer] platform.
08/03/24 CXR: No acute disease of the chest.
08/03/[address]: Focal area of decreased density involving the anterior aspect of the superior sunny, and possibly extending into the adjacent midbrain. This is larger than on previous examinations of March 04, 2024. This could represent a focal area of
subacute infarction, versus a metastatic lesion. As warranted, consider further imaging evaluation with MRI of the brain without and with contrast, if there are no contraindications.
--- NOTE | 2024-08-05 11:32 | PTCARENOTE ---
r Anastacio TT son Jose would like update.
[2024-08-05] MEDS: CORTEF 5 MG PO (13:12)
--- NOTE | 2024-08-05 13:28 | CM ---
Addendum entered by Mariajose Hein 08/05/24 13:34:
IMM benefit explained to patient; form signed @ 1330
Original Note:
Met with patient and family at bedside to discuss discharge plan
Patient agreeable with resumption of Home Health services with [facility]; referral sent via [facility]
Per patient's son, his sister will transport patient home
Plan: Discharge to home with home health services from [facility]
--- NOTE | 2024-08-05 15:40 | PTCARENOTE ---
Pt dc , instructions to pt and daughter. Pt taken down in WC.
--- NOTE | 2024-08-05 16:48 | W.DCSUMMARY ---
Discharge Summary
Discharge Data
Date of Admission: 08/03/24
Date of Discharge: 08/05/24
-
Pending Results: No
Hospital Course
The patient is an 88-year-old male with a history of hyperlipidemia, metastatic bladder cancer with metastases to the brain who presented to the emergency department via EMS for evaluation of generalized weakness and worsening confusion. He was in
his normal state of health the day before his presentation to the emergency department but was noted to be more somnolent than usual at 10 PM that evening. His family spoke with him and he conversed with them at that time. He was helped to bed and
went to sleep. The following morning around 9:00am he was found to have wet himself in bed. When his family tried to talk to him he was disoriented but was able to talk. He was able to answer simple yes/no questions but was very confused. He had
weakness and was unable to get to the bathroom and had to stop and lay on the floor. His family called EMS and he was promptly brought to the emergency department. During physical exam and interview the patient was somnolent and did not answer
many questions. He nodded and was able to confirm that he knew that he was in the emergency department at [facility]. He was admitted to [facility] for encephalopathy secondary to unknown causes.
After admission the patient was given antipyretics and he was no longer febrile. CT scan of the head conducted on 08/03/2024 showed possible encephalomalacia and other changes related to metastatic lesions and a follow-up MRI was ordered. The
patient was found to be negative for COVID and flu. While in the emergency department he was given 1 dose of IV cefepime and vancomycin. Urine analysis did not show any evidence of infection. Blood culture results did not show any signs of
infection. He was monitored on telemetry and neurochecks were conducted as per unit guidelines. Patient was also given IV fluid support. Infectious diseases was consulted and their assessment paired with lab values that did not indicate an
infection lead to the conclusion that the patient's encephalopathy was secondary to processes related to his metastatic tumors. MRI conducted on 08/04/2024 showed an increase in size of the metastatic brain lesions that have been imaged before. A
discussion was conducted in regards to treatment and care plans with Dr. Jose Mcnair who is the patient's medical power of assistant city attorney who is also an emergency medicine physician at [facility]. After discussion about the MRI results it was decided
that it would be best to discharge the patient home with a plan to follow-up with neurosurgery and radiation oncology in the outpatient setting. The patient will follow-up with his radiation oncologist at [facility] and the patient has a history of
stereotactic radiation in the past that is not offered at [facility]. As the patient's fever resolved the patient slowly returned back to his baseline. He was seen out of bed sitting and eating his breakfast and conversing with others. He has
asked when he will be discharged and would like to be discharged if possible.
The patient has reached maximal benefit from this hospital stay and is appropriate for discharge. There are no barriers that would impede this patient from being safely discharged. The patient has been recommended to follow-up with his radiation
oncologist and neurosurgery in the outpatient setting. The patient has been recommended to follow-up with his primary care provider 1 to 2 weeks after discharge.
Discharge Plan
-
Patient Disposition: Home (Routine Discharge)
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
Condition: Good
Diet: No restrictions
Activity: No restrictions
Driving Restrictions: As prior to admission
Bathing Restrictions: None
Referrals:
Jerrod Ashton DO [Family Provider] - in one to two weeks
Additional Discharge Medication Instructions: Patient should be followed up by his radiation oncologist and neurosurgery in the outpatient setting.
Prescriptions:
Continued
hydrocortisone 5 mg Tablet
5 mg PO BID@1400,2000
acetaminophen 650 mg Tablet Extended Release
650 mg PO TID
oxycodone-acetaminophen [Percocet] 5-325 mg Tablet
1 tab PO DAILYPRN PRN (Reason: break through pain)
calcium carbonate 500 mg calcium (1,250 mg) Tablet
1,000 mg PO DAILY
morphine 15 mg tablet extended release
15 mg PO HS
hydrocortisone 10 mg Tablet
10 mg PO DAILY
cholecalciferol (vitamin D3) [Vitamin D3] 25 mcg (1,000 unit) Tablet
25 mcg PO DAILY
Discharge Orders:
Discharge Patient (As Directed); Ordered 08/05/24
Ordered By: pOal Enciso
Discharge Date and Time
Discharge Date/Time: 08/05/24 15:39
Print Language: DANISH
== END 2024-08-05 15:39 | disposition home health service (06) | DRG 55 ==
LOC: IMU 15:34
PROVIDERS: Physician Assistant; ADMITTING PHYSICIAN Hospitalist; EMERGENCY PHYSICIAN Emergency Medicine; FAMILY PHYSICIAN Family Medicine; OTHER PHYSICIAN Internal Medicine Infectious Disease
DX: C79.31 Secondary malignant neoplasm of brain (principal); C77.9 Secondary and unspecified malignant neoplasm of lymph node, unspecified; C79.51 Secondary malignant neoplasm of bone; E27.40 Unspecified adrenocortical insufficiency; N18.4 Chronic kidney disease, stage 4 (severe); G93.89 Other specified disorders of brain; D64.9 Anemia, unspecified; J45.909 Unspecified asthma, uncomplicated; C67.9 Malignant neoplasm of bladder, unspecified; E78.00 Pure hypercholesterolemia, unspecified; R79.89 Other specified abnormal findings of blood chemistry; R50.81 Fever presenting with conditions classified elsewhere; R53.1 Weakness; Z79.899 Other long term (current) drug therapy; Z86.718 Personal history of other venous thrombosis and embolism; Z90.5 Acquired absence of kidney; Z92.21 Personal history of antineoplastic chemotherapy; Z92.3 Personal history of irradiation; Z11.52 Encounter for screening for COVID-19
CPT/HCPCS: 70450; 70551; 71046; 80053; 81003; 81015; 83605; 83735; 84100; 85025; 85027; 87040; 87086; 87502; 87811; 93005; 96365; 96375; 97163; 99285